=== PATIENT | female | born 1955 | race American Indian/Alaskan Native ===

== ENCOUNTER 2019-10-12 16:45 | Inpatient (IN) | payer MEDICARE ==
--- NOTE | 2019-10-12 19:15 | XRay Report ---
CHEST 2 VIEWS INDICATION / CLINICAL INFORMATION: Chest Pain. COMPARISON: 10/09/2019 FINDINGS: SUPPORT DEVICES: None. HEART / MEDIASTINUM: Prior sternotomy. Cardiac silhouette size remains mildly enlarged but unchanged. LUNGS / PLEURA: No significant pulmonary or pleural abnormality. No pneumothorax. ADDITIONAL FINDINGS: No significant additional findings. IMPRESSION: 1. No acute finding or interval change. Signer Name: Letty Znuiga MD Signed: 10/12/2019 7:10 PM Workstation Name: [id number]
[2019-10-12 19:23] LABS: Basophils # (Auto) 0.1 K/mm3 (0.0-0.1); Basophils % (Auto) 0.7 % (0.0-1.8); Eosinophils # (Auto) 0.1 K/mm3 (0.0-0.4); Eosinophils % (Auto) 1.6 % (0.0-4.3); Hematocrit 29.5 % (30.3-42.9); Hemoglobin 9.7 gm/dl (10.1-14.3); Lymphocytes # (Auto) 0.9 K/mm3 (1.2-5.4); Lymphocytes % (Auto) 11.1 % (13.4-35.0); Mean Corpuscular HGB Conc 33 % (30-34); Mean Corpuscular Volume 88 fl (79-97); Monocytes # (Auto) 0.6 K/mm3 (0.0-0.8); Monocytes % (Auto) 7.1 % (0.0-7.3); Platelet Count 252 K/mm3 (140-440); Red Blood Count 3.36 M/mm3 (3.65-5.03); Red Cell Distribution Width 15.3 % (13.2-15.2)
[2019-10-12 19:33] LABS: INR 1.07 (0.87-1.13)
[2019-10-12 19:34] LABS: Partial Thromboplastin Time 28.8 Sec. (24.2-36.6)
[2019-10-12 19:38] LABS: Creatine Kinase MB 1.2 ng/mL (0.0-4.0)
[2019-10-12 19:46] LABS: Alanine Aminotransferase 18 units/L (7-56); BUN/Creatinine Ratio 27; Blood Urea Nitrogen 19 mg/dL (7-17); Calcium 9.7 mg/dL (8.4-10.2); Hemolysis Index 10
--- NOTE | 2019-10-12 19:47 | Event Note ---
ED Screening Note ED Screening Note: epigastric abd pain left sided CP began today 3 pm associated SOB no n/v/d no cough no fever no leg swelling normal BM this morning PMHx CAD, HTN, HLD, CHF, Afib she is on eliquis, denies missing any doses no allergies to meds she does not use oxygen at home This initial assessment/diagnostic orders/clinical plan/treatment(s) is/are subject to change based on patients health status, clinical progression and re- assessment by fellow clinical providers in the ED. Further treatment and workup at subsequent clinical providers discretion. Patient/guardian urged not to elope from the ED as their condition may be serious if not clinically assessed and managed. Initial orders include: labs CXR EKG will send to MAIN ED
--- NOTE | 2019-10-12 22:12 | Emergency Department Report ---
ED Chest Pain HPI - General Chief Complaint: Chest Pain Stated Complaint: POP PUI?: No Time Seen by Provider: 10/12/19 21:44 Source: patient Mode of arrival: Wheelchair Limitations: No Limitations - History of Present Illness Initial Comments: Patient is a 64-year-old female that presents emergency room with complaints of chest pain and shortness of breath. Patient states her symptoms started yesterday. Patient states they are worsening. Patient states her chest pain is a 7 out of 10. Patient states the pain is worse with movement and exertion. Patient states that her pain is better with rest. Patient states that shortness of breath is better with rest and worse with exertion. Patient denies fever and chills. Patient denies cough. Patient denies nausea vomiting. Patient denies diaphoresis. Patient denies recent travel. Patient denies recent international travel. Patient denies exposure to the novel coronavirus. Patient denies sick contacts. Patient denies fever and chills. Patient denies cough. Patient denies diarrhea. Patient denies coming in contact with anybody with symptoms of the novel coronavirus. MD Complaint: chest pain, other (Redness of breath) - Related Data Home Medications Medication Instructions Recorded Confirmed Last Taken Aspirin [Aspirin BABY CHEW TAB] 81 mg PO DAILY 10/09/19 10/09/19 10/08/19 Atorvastatin Calcium [Lipitor] 40 mg PO HS 10/09/19 10/09/19 10/08/19 Gabapentin 100 mg PO Q8HR 10/09/19 10/09/19 10/08/19 Primidone [Mysoline] 50 mg PO BID 10/09/19 10/09/19 10/08/19 Xarelto 15 mg PO DAILY 10/09/19 10/09/19 10/08/19 Previous Rx's Medication Instructions Recorded Last Taken Type dilTIAZem CD [Cardizem CD] 240 mg PO QDAY #30 capsule 10/10/19 Unknown Rx Allergies Allergy/AdvReac Type Severity Reaction Status Date / Time No Known Allergies Allergy Unverified 10/09/19 10:34 Heart Score - HEART Score History: Moderately suspicious EKG: Non-specific Age: > 65 Risk factors: 1-2 risk factors Troponin: < normal limit HEART Score: 5 ED Review of Systems ROS: Stated complaint: POP Other details as noted in HPI Constitutional: denies: chills, fever Eyes: denies: eye pain, eye discharge, vision change ENT: denies: ear pain, throat pain Respiratory: shortness of breath. denies: cough, wheezing Cardiovascular: chest pain. denies: palpitations Endocrine: no symptoms reported Gastrointestinal: denies: abdominal pain, nausea, diarrhea Genitourinary: denies: urgency, dysuria, discharge Musculoskeletal: denies: back pain, joint swelling, arthralgia Skin: denies: rash, lesions Neurological: denies: headache, weakness, paresthesias Psychiatric: denies: anxiety, depression Hematological/Lymphatic: denies: easy bleeding, easy bruising ED Past Medical Hx - Past Medical History Previous Medical History?: Yes Hx Hypertension: Yes Hx CVA: Yes Hx Congestive Heart Failure: Yes - Surgical History Past Surgical History?: Yes Additional Surgical History: Open Heart, left knee, TL - Family History Family history: no significant - Social History Smoking Status: Never Smoker Substance Use Type: None - Medications Home Medications: Home Medications Medication Instructions Recorded Confirmed Last Taken Type Aspirin [Aspirin BABY CHEW TAB] 81 mg PO DAILY 10/09/19 10/09/19 10/08/19 History Atorvastatin Calcium [Lipitor] 40 mg PO HS 10/09/19 10/09/19 10/08/19 History Gabapentin 100 mg PO Q8HR 10/09/19 10/09/19 10/08/19 History Primidone [Mysoline] 50 mg PO BID 10/09/19 10/09/19 10/08/19 History Xarelto 15 mg PO DAILY 10/09/19 10/09/19 10/08/19 History dilTIAZem CD [Cardizem CD] 240 mg PO QDAY #30 capsule 10/10/19 Unknown Rx ED Physical Exam - General Limitations: No Limitations General appearance: alert, in no apparent distress - Head Head exam: Present: atraumatic, normocephalic - Eye Eye exam: Present: normal appearance - ENT ENT exam: Present: mucous membranes moist - Neck Neck exam: Present: normal inspection - Respiratory Respiratory exam: Present: normal lung sounds bilaterally. Absent: respiratory distress - Cardiovascular Cardiovascular Exam: Present: regular rate, normal rhythm. Absent: systolic murmur, diastolic murmur, rubs, gallop - GI/Abdominal GI/Abdominal exam: Present: soft, normal bowel sounds - Extremities Exam Extremities exam: Present: normal inspection - Back Exam Back exam: Present: normal inspection - Neurological Exam Neurological exam: Present: alert, oriented X3 - Psychiatric Psychiatric exam: Present: normal affect, normal mood - Skin Skin exam: Present: warm, dry, intact, normal color. Absent: rash ED Course Vital Signs 10/12/19 10/12/19 10/12/19 17:08 17:40 22:20 Temperature 98 F Pulse Rate 56 L 66 54 L Respiratory 18 26 H 18 Rate Blood Pressure 121/58 177/89 160/74 [Right] O2 Sat by Pulse 98 100 99 Oximetry 10/12/19 10/12/19 22:44 23:37 Temperature Pulse Rate 45 L Respiratory 20 18 Rate Blood Pressure 125/67 [Right] O2 Sat by Pulse 98 100 Oximetry - Reevaluation(s) Reevaluation #1: Patient complaining of chest pain. Patient will be given aspirin and morphine 2 mg. 10/12/19 22:01 Reevaluation #2: I discussed all results with patient. I discussed plan of care with patient. Patient agrees with plan of care and admission. Patient to be admitted to the hospitalist service. 10/12/19 22:41 - Consultations Consultation #1: Hospitalist consulted for admission. Hospitalist to admit patient. 10/12/19 22:41 HERBERTH score - Herberth Score Age > 65: (1) Yes Aspirin use within the Past 7 Days: (1) Yes 3 or more CAD Risk Factors: (1) Yes 2 or more Angina events in past 24 hrs: (0) No Known CAD with more than 50% Stenosis: (0) No Elevated Cardiac Markers: (0) No ST Deviation Greater than 0.5mm: (0) No HERBERTH Score: 3 ED Medical Decision Making - Lab Data Result diagrams: 10/12/19 23:47 10/12/19 23:47 - EKG Data -: EKG Interpreted by Me EKG shows normal: sinus rhythm, axis, intervals, QRS complexes, ST-T waves Rate: bradycardia - Radiology Data Radiology results: report reviewed, image reviewed interpreted by me: No acute findings on chest x-ray. - Medical Decision Making Patient is a 64-year-old female that presents emergency room with complaints of chest pain shortness of breath. Patient admitted to the hospital service for further evaluation and treatment and rule out ACS. Patient had an EKG which shows no STEMI changes. Patient had a chest x-ray which shows no acute findings. Patient's labs are unremarkable except for anemia and UTI. Anti biotics ordered. Patient given morphine and aspirin in the ER. - Differential Diagnosis Chest pain, shortness of breath, ACS, CHF, Critical Care Time: Yes Critical care time in (mins) excluding proc time.: 35 Critical care attestation.: If time is entered above; I have spent that time in minutes in the direct care of this critically ill patient, excluding procedure time. Critical Care Time: 35 minutes ED Disposition Clinical Impression: SOB (shortness of breath) Chest pain Qualifiers: Chest pain type: unspecified Qualified Code(s): R07.9 - Chest pain, unspecified UTI (urinary tract infection) Qualifiers: Urinary tract infection type: acute cystitis Hematuria presence: with hematuria Qualified Code(s): N30.01 - Acute cystitis with hematuria Anemia Qualifiers: Anemia type: unspecified type Qualified Code(s): D64.9 - Anemia, unspecified Disposition: DC-09 OP ADMIT IP TO THIS HOSP Is pt being admited?: Yes Does the pt Need Aspirin: No Condition: Critical Time of Disposition: 22:43
[2019-10-12] MEDS ORDERED: ASPIRIN 325 MG TAB PO ONE (22:39)
[2019-10-12] MEDS ORDERED: MORPHINE 2 MG/1 ML INJ IV ONE (22:39)
[2019-10-12] MEDS ORDERED: ACETAMINOPHEN 325 MG TAB PO PRN (23:05)
[2019-10-12] MEDS ORDERED: NITROGLYCERIN 0.4 MG TAB SUBL SL PRN (23:05)
[2019-10-12] MEDS ORDERED: MAGNESIUM HYDROXIDE (MOM) ORAL LIQD UDC PO PRN (23:05)
[2019-10-12] MEDS ORDERED: ONDANSETRON 4 MG/2 ML INJ IV PRN (23:05)
--- NOTE | 2019-10-12 23:17 | History and Physical Report ---
History of Present Illness Date of examination: 10/12/19 Date of admission: 10/12/2019 Chief complaint: Chest pain History of present illness: 34-year-old female with known history of open heart surgery in the past, CHF, CVA and hypertension presenting to the emergency room today complaining of chest pain. Chest pain was said to have started yesterday and has gotten worse today. On a scale of 10 pain was about 7-8 over 10. Pain is worse on exertion and improves upon resting. She has had associated shortness of breath, no fever or chills, no nausea vomiting, no diarrhea. Denies any diaphoresis. Chest pain is said to be midsternal and there has been no radiation. Patient denies any sick contacts and no recent travel. Denies any contact with anyone with COVID-19. Evaluation in the emergency room so far has not shown any significant abnormalities except for mild UTI. Past History Past Medical History: heart failure, hypertension, hyperlipidemia, stroke Past Surgical History: Other (Open heart surgery in 1962, left knee surgery in the past) Social history: no significant social history Family history: no significant family history Medications and Allergies Allergies Allergy/AdvReac Type Severity Reaction Status Date / Time No Known Allergies Allergy Unverified 10/09/19 10:34 Home Medications Medication Instructions Recorded Confirmed Last Taken Type Aspirin [Aspirin BABY CHEW TAB] 81 mg PO DAILY 10/09/19 10/13/19 10/08/19 History Atorvastatin Calcium [Lipitor] 40 mg PO HS 10/09/19 10/13/19 10/08/19 History Gabapentin 100 mg PO Q8HR 10/09/19 10/13/19 10/08/19 History Primidone [Mysoline] 50 mg PO BID 10/09/19 10/13/19 10/08/19 History Xarelto 15 mg PO DAILY 10/09/19 10/13/19 10/08/19 History dilTIAZem CD [Cardizem CD] 240 mg PO QDAY #30 capsule 10/10/19 10/13/19 Unknown Rx Review of Systems Constitutional: no fever, no chills Ears, nose, mouth and throat: no nasal congestion, no sore throat Cardiovascular: chest pain, no palpitations Respiratory: no cough, no shortness of breath Gastrointestinal: no abdominal pain, no nausea, no vomiting, no diarrhea Genitourinary Female: no pelvic pain, no flank pain, no hematuria Musculoskeletal: no neck pain, no low back pain Integumentary: no rash, no pruritis Neurological: no headaches, no confusion Psychiatric: no anxiety, no depression Exam - Constitutional Vitals: Temp Pulse Resp BP Pulse Ox 98 F 66 26 H 177/89 100 10/12/19 17:08 10/12/19 17:40 10/12/19 17:40 10/12/19 17:40 10/12/19 17:40 General appearance: Present: no acute distress, well-nourished - EENT Eyes: Present: PERRL, EOM intact ENT: hearing intact, clear oral mucosa, dentition normal - Neck Neck: Present: supple, normal ROM - Respiratory Respiratory effort: normal Respiratory: bilateral: CTA - Cardiovascular Rhythm: regular Heart Sounds: Present: S1 & S2. Absent: gallop, systolic murmur, diastolic murmur, rub - Extremities Extremities: no ischemia, pulses intact, pulses symmetrical, No edema, Full ROM Peripheral Pulses: within normal limits - Abdominal General gastrointestinal: Present: soft, non-tender, non-distended, normal bowel sounds. Absent: mass - Integumentary Integumentary: Present: clear, warm, dry. Absent: rash - Musculoskeletal Musculoskeletal: strength equal bilaterally - Psychiatric Psychiatric: appropriate mood/affect, intact judgment & insight, memory intact, cooperative - Neurologic Neurologic: CNII-XII intact, no focal deficits, moves all extremities HEART Score - HEART Score EKG: Non-specific Age: > 65 Risk factors: 1-2 risk factors Troponin: Troponin T < 0.010 ng/mL (0.00-0.029) 10/12/19 21:18 Troponin: < normal limit Results - Labs CBC & Chem 7: 10/12/19 23:47 10/12/19 23:47 Labs: Abnormal lab results 10/12/19 10/12/19 Range/Units 19:06 19:06 RBC 3.36 L (3.65-5.03) M/mm3 Hgb 9.7 L (10.1-14.3) gm/dl Hct 29.5 L (30.3-42.9) % RDW 15.3 H (13.2-15.2) % Lymph % (Auto) 11.1 L (13.4-35.0) % Lymph # 0.9 L (1.2-5.4) K/mm3 Seg Neutrophils % 79.5 H (40.0-70.0) % BUN 19 H (7-17) mg/dL Glucose 105 H (65-100) mg/dL Assessment and Plan - Patient Problems (1) Chest pain Current Visit: Yes Status: Acute Qualifiers: Chest pain type: unspecified Qualified Code(s): R07.9 - Chest pain, unspecified Plan to address problem: Patient admitted and placed on telemetry. Will check serial cardiac enzymes. Also schedule patient for stress test. Meanwhile patient placed on aspirin, sublingual nitroglycerin and IV morphine as needed for chest pain. (2) Hypertension Current Visit: Yes Status: Acute Plan to address problem: Blood pressure stable and we will continue routine home medications. Will monitor vital signs closely. (3) Hyperlipidemia Current Visit: Yes Status: Acute Plan to address problem: We will monitor lipid profile and continue routine home medications. (4) UTI (urinary tract infection) Current Visit: Yes Status: Acute Qualifiers: Urinary tract infection type: acute cystitis Hematuria presence: with hematuria Qualified Code(s): N30.01 - Acute cystitis with hematuria Plan to address problem: GEN placed on empiric IV antibiotics. We will await urine culture result. (5) DVT prophylaxis Current Visit: Yes Status: Acute Plan to address problem: Patient on anticoagulation. (6) Full code status Current Visit: Yes Status: Acute
[2019-10-12 23:44] LABS: Bacteria,Urine 1+ /HPF (Negative); Bilirubin,Urine NEG (Negative); Blood,Urine NEG (Negative); Color,Urine Yellow (Yellow); Hyaline Casts,Urine 1 /LPF; Mucus,Urine FEW /HPF; Protein,Urine <15 mg/dL mg/dL (Negative); Urobilinogen,Urine < 2.0 mg/dL (<2.0)
[2019-10-13 00:07] LABS: Basophils % (Auto) 0.7 % (0.0-1.8); Eosinophils # (Auto) 0.2 K/mm3 (0.0-0.4); Eosinophils % (Auto) 2.2 % (0.0-4.3); Hematocrit 27.2 % (30.3-42.9); Hemoglobin 8.9 gm/dl (10.1-14.3); Lymphocytes % (Auto) 14.5 % (13.4-35.0); Mean Corpuscular HGB Conc 33 % (30-34); Mean Corpuscular Volume 88 fl (79-97); Monocytes # (Auto) 0.5 K/mm3 (0.0-0.8); Monocytes % (Auto) 7.5 % (0.0-7.3); Platelet Count 230 K/mm3 (140-440); Red Blood Count 3.09 M/mm3 (3.65-5.03); Red Cell Distribution Width 15.3 % (13.2-15.2)
[2019-10-13 00:23] LABS: BUN/Creatinine Ratio 24; Blood Urea Nitrogen 17 mg/dL (7-17); Calcium 9.5 mg/dL (8.4-10.2); Hemolysis Index 7
[2019-10-13] MEDS ORDERED: CEFEPIME/NS 2 GM/100 ML 2 GM/100 ML BAG IV ONE (01:57)
[2019-10-13] MEDS ORDERED: HEPARIN 5,000 UNIT/1 ML VIAL SUB-Q SCH (06:00)
[2019-10-13] MEDS ORDERED: GABAPENTIN 100 MG CAP PO SCH (06:00)
[2019-10-13] MEDS: GABAPENTIN 100 MG CAP PO SCH ×3 (09:00→22:34)
[2019-10-13] MEDS: dilTIAZem CD 240 MG CAP PO SCH (09:05)
[2019-10-13] MEDS: ASPIRIN EC 81 MG TAB PO SCH (09:33)
[2019-10-13] MEDS: RIVAROXABAN 15 MG TAB PO SCH (09:33)
[2019-10-13] MEDS: cefTRIAXone/NS 1 GM/50 ML 1 GM/50 ML BAG IV SCH (09:34)
[2019-10-13] MEDS ORDERED: ASPIRIN EC 325 MG TAB PO SCH (10:00)
[2019-10-13] MEDS: PRIMIDONE 50 MG TAB PO SCH ×2 (10:25→22:34)
[2019-10-13 10:30] LABS: Basophils % (Auto) 0.6 % (0.0-1.8); Eosinophils # (Auto) 0.1 K/mm3 (0.0-0.4); Hematocrit 26.8 % (30.3-42.9); Hemoglobin 8.8 gm/dl (10.1-14.3); Lymphocytes # (Auto) 0.8 K/mm3 (1.2-5.4); Lymphocytes % (Auto) 13.1 % (13.4-35.0); Mean Corpuscular HGB Conc 33 % (30-34); Mean Corpuscular Volume 88 fl (79-97); Monocytes # (Auto) 0.3 K/mm3 (0.0-0.8); Monocytes % (Auto) 5.2 % (0.0-7.3); Platelet Count 221 K/mm3 (140-440); Red Blood Count 3.06 M/mm3 (3.65-5.03)
[2019-10-13 10:42] LABS: INR 1.18 (0.87-1.13)
[2019-10-13 10:56] LABS: BUN/Creatinine Ratio 26; Blood Urea Nitrogen 13 mg/dL (7-17); Calcium 7.4 mg/dL (8.4-10.2); Hemolysis Index 4
--- NOTE | 2019-10-13 13:34 | Progress Note ---
Assessment and Plan - Patient Problems (1) Angina at rest Current Visit: Yes Status: Acute Plan to address problem: Serial cardiac enzymes, EKG, telemetry, pain management, morphine, supplemental oxygen, nitro, aspirin, cardiology team consulted. (2) Diastolic CHF Current Visit: Yes Status: Acute Qualifiers: Heart failure chronicity: acute on chronic Qualified Code(s): I50.33 - Acute on chronic diastolic (congestive) heart failure Plan to address problem: Strict I's/O, daily weight, monitor urine output every shift, afterload reduction, blood pressure control, cardiology team consulted. (3) Hyperlipidemia Current Visit: Yes Status: Acute Qualifiers: Hyperlipidemia type: mixed hyperlipidemia Qualified Code(s): E78.2 - Mixed hyperlipidemia Plan to address problem: Low-cholesterol diet, statin therapy as clinically indicated. (4) Hypertension Current Visit: Yes Status: Acute Qualifiers: Hypertension type: essential hypertension Qualified Code(s): I10 - Essential (primary) hypertension Plan to address problem: Monitor blood pressure every shift, continue medical management (5) UTI (urinary tract infection) Current Visit: Yes Status: Acute Qualifiers: Urinary tract infection type: acute cystitis Hematuria presence: with hematuria Qualified Code(s): N30.01 - Acute cystitis with hematuria Plan to address problem: Urinalysis, CBC, IV antibiotic therapy. (6) Advance care planning Current Visit: Yes Status: Acute Plan to address problem: Disease education conducted, patient is full code, patient prognosis discussed, patient knowledges understanding and agreement with care plan, +30 minutes. (7) DVT prophylaxis Current Visit: Yes Status: Acute Plan to address problem: SCD to bilateral lower extremities while in bed, patient is ambulatory History Interval history: 64 YO Female HD #2 with Angina, Diastolic CHF, UTI, CAD. Patient rested comfortably overnight. Patient initiated on chest pain protocol. Will continue telemetry monitoring. Continue antibiotic therapy. Patient denies fever, chills, chest pain, palpitations, shortness of breath. Hospitalist Physical - Constitutional Vitals: Temp Pulse Resp BP Pulse Ox 97.9 F 71 17 147/66 98 10/13/19 03:00 10/13/19 11:32 10/13/19 11:32 10/13/19 09:05 10/13/19 11:32 General appearance: Present: no acute distress, well-nourished - EENT Eyes: Present: PERRL ENT: hearing intact - Neck Neck: Present: supple - Respiratory Respiratory: bilateral: CTA - Cardiovascular Rhythm: regular Heart Sounds: Present: S1 & S2 - Extremities Extremities: no ischemia Peripheral Pulses: within normal limits - Abdominal General gastrointestinal: soft, non-tender, non-distended - Integumentary Integumentary: Present: clear, dry - Psychiatric Psychiatric: appropriate mood/affect, cooperative - Neurologic Neurologic: CNII-XII intact HEART Score - HEART Score EKG: Non-specific Age: > 65 Risk factors: 1-2 risk factors Troponin: Troponin T < 0.010 ng/mL (0.00-0.029) 10/13/19 10:05 Troponin: < normal limit Results - Labs CBC & Chem 7: 10/13/19 10:05 10/13/19 10:05 Labs: Laboratory Last Values WBC 6.3 K/mm3 (4.5-11.0) 10/13/19 10:05 RBC 3.06 M/mm3 (3.65-5.03) L 10/13/19 10:05 Hgb 8.8 gm/dl (10.1-14.3) L 10/13/19 10:05 Hct 26.8 % (30.3-42.9) L 10/13/19 10:05 MCV 88 fl (79-97) 10/13/19 10:05 MCH 29 pg (28-32) 10/13/19 10:05 MCHC 33 % (30-34) 10/13/19 10:05 RDW 15.0 % (13.2-15.2) 10/13/19 10:05 Plt Count 221 K/mm3 (140-440) 10/13/19 10:05 Lymph % (Auto) 13.1 % (13.4-35.0) L 10/13/19 10:05 Edgar % (Auto) 5.2 % (0.0-7.3) 10/13/19 10:05 Eos % (Auto) 2.0 % (0.0-4.3) 10/13/19 10:05 Baso % (Auto) 0.6 % (0.0-1.8) 10/13/19 10:05 Lymph # 0.8 K/mm3 (1.2-5.4) L 10/13/19 10:05 Edgar # 0.3 K/mm3 (0.0-0.8) 10/13/19 10:05 Eos # 0.1 K/mm3 (0.0-0.4) 10/13/19 10:05 Baso # 0.0 K/mm3 (0.0-0.1) 10/13/19 10:05 Seg Neutrophils % 79.1 % (40.0-70.0) H 10/13/19 10:05 Seg Neutrophils # 5.0 K/mm3 (1.8-7.7) 10/13/19 10:05 PT 14.8 Sec. (12.2-14.9) 10/13/19 10:05 INR 1.18 (0.87-1.13) H 10/13/19 10:05 APTT 28.8 Sec. (24.2-36.6) 10/12/19 19:06 Sodium 152 mmol/L (137-145) H D 10/13/19 10:05 Potassium 3.1 mmol/L (3.6-5.0) L D 10/13/19 10:05 Chloride 110.9 mmol/L (98-107) H 10/13/19 10:05 Carbon Dioxide 18 mmol/L (22-30) L D 10/13/19 10:05 Anion Gap 26 mmol/L 10/13/19 10:05 BUN 13 mg/dL (7-17) 10/13/19 10:05 Creatinine 0.5 mg/dL (0.7-1.2) L 10/13/19 10:05 Estimated GFR > 60 ml/min 10/13/19 10:05 BUN/Creatinine Ratio 26 % 10/13/19 10:05 Glucose 107 mg/dL (65-100) H 10/13/19 10:05 Calcium 7.4 mg/dL (8.4-10.2) L D 10/13/19 10:05 Total Bilirubin 0.20 mg/dL (0.1-1.2) 10/12/19 19:06 AST 18 units/L (5-40) 10/12/19 19:06 ALT 18 units/L (7-56) 10/12/19 19:06 Alkaline Phosphatase 83 units/L (35-129) 10/12/19 19:06 Total Creatine Kinase 81 units/L (30-135) 10/12/19 19:06 CK-MB (CK-2) 1.2 ng/mL (0.0-4.0) 10/12/19 19:06 CK-MB (CK-2) Rel Index 1.4 (0-4) 10/12/19 19:06 Troponin T < 0.010 ng/mL (0.00-0.029) 10/13/19 10:05 NT-Pro-B Natriuret Pep 341.8 pg/mL (0-900) 10/12/19 19:06 Total Protein 7.5 g/dL (6.3-8.2) 10/12/19 19:06 Albumin 4.0 g/dL (3.9-5) 10/12/19 19:06 Albumin/Globulin Ratio 1.1 % 10/12/19 19:06 Urine Color Yellow (Yellow) 10/12/19 22:53 Urine Turbidity Slightly-cloudy (Clear) 10/12/19 22:53 Urine pH 6.0 (5.0-7.0) 10/12/19 22:53 Ur Specific [place] 1.014 (1.003-1.030) 10/12/19 22:53 Urine Protein <15 mg/dl mg/dL (Negative) 10/12/19 22:53 Urine Glucose (UA) Neg mg/dL (Negative) 10/12/19 22:53 Urine Ketones Neg mg/dL (Negative) 10/12/19 22:53 Urine Blood Neg (Negative) 10/12/19 22:53 Urine Nitrite Neg (Negative) 10/12/19 22:53 Urine Bilirubin Neg (Negative) 10/12/19 22:53 Urine Urobilinogen < 2.0 mg/dL (<2.0) 10/12/19 22:53 Ur Leukocyte Esterase Lg (Negative) 10/12/19 22:53 Urine WBC (Auto) 84.0 /HPF (0.0-6.0) H 10/12/19 22:53 Urine RBC (Auto) 2.0 /HPF (0.0-6.0) 10/12/19 22:53 U Epithel Cells (Auto) 3.0 /HPF (0-13.0) 10/12/19 22:53 Urine Bacteria (Auto) 1+ /HPF (Negative) 10/12/19 22:53 Hyaline Casts 1 /LPF 10/12/19 22:53 Urine Mucus Few /HPF 10/12/19 22:53 Urine Yeast (Budding) 1+ /HPF 10/12/19 22:53 - Diagnostic Impressions Diagnostic Impressions: Echocardiogram 10/12/19 23:10 Transthoracic Echocardiogram Indication: Chest Pain BP: 103/63 HR: 66 Findings Left Ventricle: The left ventricular chamber size is normal. Global left ventricular wall motion and contractility are within normal limits. Global left ventricular systolic function is at the lower limits of normal. The estimated ejection fraction is 50-55%. Abnormal left ventricular diastolic function is observed. The left ventricular diastolic filling pattern is consistent with pseudonormalization. Left Atrium: The left atrium is mildly dilated. Right Ventricle: The right ventricular cavity size is normal. The right ventricular global systolic function is normal. Right Atrium: The right atrium appears normal. The interatrial septum appears normal. Aortic Valve: The aortic valve structure is normal. There is no evidence of aortic regurgitation. There is no evidence of aortic stenosis. Mitral Valve: The mitral valve leaflets appear normal. There is mild mitral regurgitation. There is no evidence of mitral stenosis. Tricuspid Valve: The tricuspid valve leaflets are normal. There is trace tricuspid regurgitation. The right ventricular systolic pressure is calculated at 27 mmHg. There is no tricuspid stenosis. Pulmonic Valve: The pulmonic valve appears normal. There is mild pulmonic regurgitation. There is no pulmonic stenosis. Pericardium: There is no pericardial effusion. Aorta: There is no dilatation of the ascending aorta. There is no dilatation of the aortic arch. There is no dilatation of the descending thoracic aorta. There is no dilatation of the aortic root. Venous: The inferior vena cava appears normal in size. There is a greater than 50% respiratory change in the inferior vena cava dimension. Measurements Chambers 2D Name Value Normal Range IVSd (2D) 0.93 cm (0.6 - 1.1) LVPWd (2D) 0.92 cm (0.6 - 1.1) LVIDd (2D) 4.85 cm (3.7 - 5.6) LVIDs (2D) 3.63 cm (2 - 3.8) LV FS (2D) 25.26 % - EF Teichholz (2D) 49.75 % - Ao root diameter (2D) 2.01 cm (2 - 3.7) Volumes/Mass Name Value Normal Range LA ESV SP 4CH (A/L) 49.06 ml - LA ESV SP 2CH (A/L) 43.46 ml - LA ESV BP (A/L) 50.21 ml - LA ESV SP 4CH (MOD) 43.1 ml - LA ESV SP 2CH (MOD) 41.49 ml - LA ESV BP (MOD) 45.88 ml - LA ESV BP (MOD) index 27.15 ml/m2 - LV EDV SP 4CH (MOD) 108.13 ml - LV ESV SP 4CH (MOD) 57.57 ml - EF SP 4CH (MOD) 46.76 % - LV EDV SP 2CH (MOD) 99.03 ml - LV ESV SP 2CH (MOD) 42.95 ml - EF SP 2CH (MOD) 56.63 % - LV EDV BP 103.38 ml - LV ESV BP 54.18 ml - BP EF (MOD) 47.59 % - Diastolic/Systolic Function Name Value Normal Range MV E-wave Vmax 0.89 m/sec - MV deceleration time 183.25 msec - MV A-wave Vmax 0.68 m/sec - MV E:A ratio 1.32 ratio - Aortic Valve Name Value Normal Range AV Vmax 1.54 m/sec - AV VTI 33.92 cm - AV peak gradient 9.49 mmHg - AV mean gradient 4.57 mmHg - LVOT diameter 1.87 cm - LVOT Vmax 1.11 m/sec - LVOT VTI 18.85 cm - LVOT peak gradient 4.96 mmHg - LVOT mean gradient 2.49 mmHg - SV LVOT 51.68 ml - KOSTA (continuity Vmax) 1.98 cm2 - KOSTA (continuity VTI) 1.52 cm2 - Ascending Ao 1.91 cm - Tricuspid Valve Name Value Normal Range TR Vmax 2.42 m/sec - TR peak gradient 23.52 mmHg - RAP 3 mmHg - RVSP 27 mmHg - Pulmonic Valve/Qp:Qs Name Value Normal Range PV Vmax 1.17 m/sec - PV peak gradient 5.44 mmHg - HI end-diastolic Vmax 1.39 m/sec - PV acceleration time 76.12 msec - Naik/IV: Voiding Method Toilet IV Catheter Type [Right INT / Saline Lock Forearm] Active Medications - Current Medications Current Medications: Generic Name Dose Route Start Last Admin Trade Name Freq PRN Reason Stop Dose Admin Acetaminophen 650 mg 10/12/19 23:05 Tylenol PO Q4H PRN Pain MILD(1-3)/Fever >100.5/CREWS Aspirin 81 mg 10/13/19 10:00 10/13/19 09:33 Halfprin Ec PO 81 mg QDAY AMELIA Administration Atorvastatin Calcium 40 mg 10/13/19 22:00 Lipitor PO QHS AMELIA Diltiazem HCl 240 mg 10/13/19 08:00 10/13/19 09:05 Cardizem Cd PO 240 mg QDAY@0800 AMELIA Administration Gabapentin 100 mg 10/13/19 08:00 10/13/19 09:00 Gabapentin PO 100 mg Q8H AMELIA Administration Ceftriaxone Sodium 1 gm in 50 mls @ 100 mls/hr 10/13/19 10:00 10/13/19 09:34 Rocephin/Ns 1 Gm/50 Ml IV 100 mls/hr Q24HR AMELIA Administration Protocol Magnesium Hydroxide 30 ml 10/12/19 23:05 Milk Of Magnesia PO Q4H PRN Constipation Morphine Sulfate 2 mg 10/12/19 23:05 Morphine IV Q5MIN PRN Chest Pain unrelieved by NTG Nitroglycerin 0.4 mg 10/12/19 23:05 Nitrostat SL Q5M PRN Chest Pain Ondansetron HCl 4 mg 10/12/19 23:05 Zofran IV Q8H PRN Nausea And Vomiting Primidone 50 mg 10/13/19 10:00 10/13/19 10:25 Mysoline PO 50 mg BID AMELIA Administration Rivaroxaban 15 mg 10/13/19 10:00 10/13/19 09:33 Xarelto PO 15 mg QAM AMELIA Administration Sodium Chloride 10 ml 10/13/19 10:00 10/13/19 09:34 Sodium Chloride Flush Syringe 10 Ml IV 10 ml BID AMELIA Administration Sodium Chloride 10 ml 10/12/19 23:05 Sodium Chloride Flush Syringe 10 Ml IV PRN PRN LINE FLUSH
[2019-10-13] MEDS: MORPHINE 2 MG/1 ML INJ IV PRN (20:10)
[2019-10-14] MEDS: GABAPENTIN 100 MG CAP PO SCH ×3 (00:36→15:26)
[2019-10-14] MEDS: dilTIAZem CD 240 MG CAP PO SCH (08:05)
[2019-10-14] MEDS: cefTRIAXone/NS 1 GM/50 ML 1 GM/50 ML BAG IV SCH (09:03)
[2019-10-14] MEDS: RIVAROXABAN 15 MG TAB PO SCH (09:03)
[2019-10-14] MEDS: ASPIRIN EC 81 MG TAB PO SCH (09:03)
[2019-10-14] MEDS: PRIMIDONE 50 MG TAB PO SCH ×2 (09:03→23:28)
--- NOTE | 2019-10-14 09:33 | Consultation ---
History of Present Illness Consult date: 10/14/19 Consult reason: atrial fibrillation History of present illness: 64-year-old -Iranian female who presents with paroxysmal palpitations patient was recently admitted to [facility] where she had been diagnosed with paroxysmal atrial fibrillation she was started on Xarelto and Cardizem and discharged home patient admits to being compliant on her medication but presented with a sustained episode of palpitations again. On previous admission patient's TSH level was normal. Patient gives a history of having cardiac surgery for repair of an ASD in the 1960s. Past History Past Medical History: heart failure, hypertension, hyperlipidemia, stroke Past Surgical History: Other (Open heart surgery in 1962, left knee surgery in the past) Social history: no significant social history Family history: no significant family history Medications and Allergies Allergies Allergy/AdvReac Type Severity Reaction Status Date / Time No Known Allergies Allergy Unverified 10/09/19 10:34 Home Medications Medication Instructions Recorded Confirmed Last Taken Type Aspirin [Aspirin BABY CHEW TAB] 81 mg PO DAILY 10/09/19 10/13/19 10/08/19 History Atorvastatin Calcium [Lipitor] 40 mg PO HS 10/09/19 10/13/19 10/08/19 History Gabapentin 100 mg PO Q8HR 10/09/19 10/13/19 10/08/19 History Primidone [Mysoline] 50 mg PO BID 10/09/19 10/13/19 10/08/19 History Xarelto 15 mg PO DAILY 10/09/19 10/13/19 10/08/19 History dilTIAZem CD [Cardizem CD] 240 mg PO QDAY #30 capsule 10/10/19 10/13/19 Unknown Rx Active Meds: Active Medications Acetaminophen (Tylenol) 650 mg PO Q4H PRN PRN Reason: Pain MILD(1-3)/Fever >100.5/CREWS Aspirin (Halfprin Ec) 81 mg PO QDAY [facility] Last Admin: 10/14/19 09:03 Dose: 81 mg Documented by: Atorvastatin Calcium (Lipitor) 40 mg PO QHS [facility] Last Admin: 10/13/19 22:34 Dose: 40 mg Documented by: Diltiazem HCl (Cardizem Cd) 240 mg PO QDAY@0800 [facility] Last Admin: 10/14/19 08:05 Dose: 240 mg Documented by: Gabapentin (Gabapentin) 100 mg PO Q8H [facility] Last Admin: 10/14/19 08:06 Dose: 100 mg Documented by: Ceftriaxone Sodium (Rocephin/Ns 1 Gm/50 Ml) 1 gm in 50 mls @ 100 mls/hr IV Q24HR [facility]; Protocol Last Admin: 10/14/19 09:03 Dose: 100 mls/hr Documented by: Magnesium Hydroxide (Milk Of Magnesia) 30 ml PO Q4H PRN PRN Reason: Constipation Morphine Sulfate (Morphine) 2 mg IV Q5MIN PRN PRN Reason: Chest Pain unrelieved by NTG Last Admin: 10/13/19 20:10 Dose: 2 mg Documented by: Nitroglycerin (Nitrostat) 0.4 mg SL Q5M PRN PRN Reason: Chest Pain Ondansetron HCl (Zofran) 4 mg IV Q8H PRN PRN Reason: Nausea And Vomiting Primidone (Mysoline) 50 mg PO BID [facility] Last Admin: 10/14/19 09:03 Dose: 50 mg Documented by: Rivaroxaban (Xarelto) 15 mg PO QAM [facility] Last Admin: 10/14/19 09:03 Dose: 15 mg Documented by: Sodium Chloride (Sodium Chloride Flush Syringe 10 Ml) 10 ml IV BID [facility] Last Admin: 10/14/19 09:04 Dose: 10 ml Documented by: Sodium Chloride (Sodium Chloride Flush Syringe 10 Ml) 10 ml IV PRN PRN PRN Reason: LINE FLUSH Review of Systems Cardiovascular: palpitations Physical Examination Vital Signs Temp Pulse Resp BP Pulse Ox 98 F 56 L 18 121/58 98 10/12/19 17:08 10/12/19 17:08 10/12/19 17:08 10/12/19 17:08 10/12/19 17:08 General appearance: no acute distress, well-nourished HEENT: Positive: PERRL, Mucus Membranes Moist Neck: Positive: neck supple, trachea midline Cardiac: Positive: Reg Rate and Rhythm, S1/S2. Negative: Audible Murmur Lungs: Positive: clear to auscultation, Normal Breath Sounds Neuro: Positive: Grossly Intact Abdomen: Positive: Soft, Active Bowel Sounds. Negative: Tender, Distended Female genitourinary: deferred Skin: Positive: Clear Incision: Cardiac Cath Site Musculoskeletal: No Pain, Normal Range of Motion, other (lipoma right shoulder) Extremities: Present: normal. Absent: edema Results 10/13/19 10:05 10/13/19 10:05 Coagulation 10/13/19 Range/Units 10:05 PT 14.8 (12.2-14.9) Sec. INR 1.18 H (0.87-1.13) CBC 10/13/19 Range/Units 10:05 WBC 6.3 (4.5-11.0) K/mm3 RBC 3.06 L (3.65-5.03) M/mm3 Hgb 8.8 L (10.1-14.3) gm/dl Hct 26.8 L (30.3-42.9) % Plt Count 221 (140-440) K/mm3 Lymph # 0.8 L (1.2-5.4) K/mm3 [place] # 0.3 (0.0-0.8) K/mm3 Eos # 0.1 (0.0-0.4) K/mm3 Baso # 0.0 (0.0-0.1) K/mm3 Comprehensive Metabolic Panel 10/13/19 Range/Units 10:05 Sodium 152 H D (137-145) mmol/L Potassium 3.1 L D (3.6-5.0) mmol/L Chloride 110.9 H (98-107) mmol/L Carbon Dioxide 18 L D (22-30) mmol/L BUN 13 (7-17) mg/dL Creatinine 0.5 L (0.7-1.2) mg/dL Glucose 107 H (65-100) mg/dL Calcium 7.4 L D (8.4-10.2) mg/dL EKG interpretations - EKG Supraventricular dysrhythmia: ectopic atrial rhythm AV and intraventricular conduction: 1 AV block Assessment and Plan 1. Paroxysmal atrial fibrillation 2. Abnormal resting EKG 3. Essential hypertension 4. History of surgical ASD repair EKG shows ectopic atrial rhythm with a first-degree AV block normal axis with nonspecific ST-T changes. Plan. Patient is currently stable she states she did not have chest pain and had not complained of chest pain but palpitations which was similar to symptoms she had on a recent admission to [facility] within the past week. We shall resume Garima and Eb would recommend EP evaluation for possible ablation.
[2019-10-14] MEDS: MORPHINE 2 MG/1 ML INJ IV PRN (13:42)
--- NOTE | 2019-10-14 21:10 | Progress Note ---
Assessment and Plan - Patient Problems (1) Paroxysmal atrial fibrillation Current Visit: Yes Status: Acute Plan to address problem: Continue rate control as per cardiology team, patient is pending electrophysiology evaluation. (2) Angina at rest Current Visit: Yes Status: Acute Plan to address problem: Serial cardiac enzymes, EKG, telemetry, pain management, morphine, supplemental oxygen, nitro, aspirin, cardiology team consulted. (3) Diastolic CHF Current Visit: Yes Status: Acute Qualifiers: Heart failure chronicity: acute on chronic Qualified Code(s): I50.33 - Acute on chronic diastolic (congestive) heart failure Plan to address problem: Strict I's/O, daily weight, monitor urine output every shift, afterload reduction, blood pressure control, cardiology team consulted. (4) Hyperlipidemia Current Visit: Yes Status: Acute Qualifiers: Hyperlipidemia type: mixed hyperlipidemia Qualified Code(s): E78.2 - Mixed hyperlipidemia Plan to address problem: Low-cholesterol diet, statin therapy as clinically indicated. (5) Hypertension Current Visit: Yes Status: Acute Qualifiers: Hypertension type: essential hypertension Qualified Code(s): I10 - Essential (primary) hypertension Plan to address problem: Monitor blood pressure every shift, continue medical management (6) UTI (urinary tract infection) Current Visit: Yes Status: Acute Qualifiers: Urinary tract infection type: acute cystitis Hematuria presence: with hematuria Qualified Code(s): N30.01 - Acute cystitis with hematuria Plan to address problem: Urinalysis, CBC, IV antibiotic therapy. (7) Advance care planning Current Visit: Yes Status: Acute Plan to address problem: Disease education conducted, patient is full code, patient prognosis discussed, patient knowledges understanding and agreement with care plan, +30 minutes. (8) DVT prophylaxis Current Visit: Yes Status: Acute Plan to address problem: SCD to bilateral lower extremities while in bed, patient is ambulatory History Interval history: 64 YO Female HD #3 with Paroxysmal Atrial Fib pending EP evaluation, Diastolic CHF, UTI, CAD. Patient rested comfortably overnight. Patient denies fever, chills, chest pain, palpitations, shortness of breath. No reported nursing events. Hospitalist Physical - Constitutional Vitals: Temp Pulse Resp BP Pulse Ox 98.1 F 72 19 131/48 97 10/14/19 19:25 10/14/19 19:25 10/14/19 19:25 10/14/19 19:25 10/14/19 19:25 General appearance: Present: no acute distress, well-nourished - EENT Eyes: Present: PERRL ENT: hearing intact - Neck Neck: Present: supple - Respiratory Respiratory effort: normal Respiratory: bilateral: CTA - Cardiovascular Rhythm: irregularly irregular - Extremities Extremities: no ischemia Peripheral Pulses: within normal limits - Abdominal General gastrointestinal: soft, non-tender, non-distended - Integumentary Integumentary: Present: clear, dry - Psychiatric Psychiatric: appropriate mood/affect, cooperative - Neurologic Neurologic: CNII-XII intact HEART Score - HEART Score EKG: Non-specific Age: > 65 Risk factors: 1-2 risk factors Troponin: Troponin T < 0.010 ng/mL (0.00-0.029) 10/13/19 10:05 Troponin: < normal limit Results - Labs CBC & Chem 7: 10/13/19 10:05 10/13/19 10:05 Labs: Laboratory Last Values WBC 6.3 K/mm3 (4.5-11.0) 10/13/19 10:05 RBC 3.06 M/mm3 (3.65-5.03) L 10/13/19 10:05 Hgb 8.8 gm/dl (10.1-14.3) L 10/13/19 10:05 Hct 26.8 % (30.3-42.9) L 10/13/19 10:05 MCV 88 fl (79-97) 10/13/19 10:05 MCH 29 pg (28-32) 10/13/19 10:05 MCHC 33 % (30-34) 10/13/19 10:05 RDW 15.0 % (13.2-15.2) 10/13/19 10:05 Plt Count 221 K/mm3 (140-440) 10/13/19 10:05 Lymph % (Auto) 13.1 % (13.4-35.0) L 10/13/19 10:05 [place] % (Auto) 5.2 % (0.0-7.3) 10/13/19 10:05 Eos % (Auto) 2.0 % (0.0-4.3) 10/13/19 10:05 Baso % (Auto) 0.6 % (0.0-1.8) 10/13/19 10:05 Lymph # 0.8 K/mm3 (1.2-5.4) L 10/13/19 10:05 [place] # 0.3 K/mm3 (0.0-0.8) 10/13/19 10:05 Eos # 0.1 K/mm3 (0.0-0.4) 10/13/19 10:05 Baso # 0.0 K/mm3 (0.0-0.1) 10/13/19 10:05 Seg Neutrophils % 79.1 % (40.0-70.0) H 10/13/19 10:05 Seg Neutrophils # 5.0 K/mm3 (1.8-7.7) 10/13/19 10:05 PT 14.8 Sec. (12.2-14.9) 10/13/19 10:05 INR 1.18 (0.87-1.13) H 10/13/19 10:05 APTT 28.8 Sec. (24.2-36.6) 10/12/19 19:06 Sodium 152 mmol/L (137-145) H D 10/13/19 10:05 Potassium 3.1 mmol/L (3.6-5.0) L D 10/13/19 10:05 Chloride 110.9 mmol/L (98-107) H 10/13/19 10:05 Carbon Dioxide 18 mmol/L (22-30) L D 10/13/19 10:05 Anion Gap 26 mmol/L 10/13/19 10:05 BUN 13 mg/dL (7-17) 10/13/19 10:05 Creatinine 0.5 mg/dL (0.7-1.2) L 10/13/19 10:05 Estimated GFR > 60 ml/min 10/13/19 10:05 BUN/Creatinine Ratio 26 % 10/13/19 10:05 Glucose 107 mg/dL (65-100) H 10/13/19 10:05 Calcium 7.4 mg/dL (8.4-10.2) L D 10/13/19 10:05 Total Bilirubin 0.20 mg/dL (0.1-1.2) 10/12/19 19:06 AST 18 units/L (5-40) 10/12/19 19:06 ALT 18 units/L (7-56) 10/12/19 19:06 Alkaline Phosphatase 83 units/L (35-129) 10/12/19 19:06 Total Creatine Kinase 81 units/L (30-135) 10/12/19 19:06 CK-MB (CK-2) 1.2 ng/mL (0.0-4.0) 10/12/19 19:06 CK-MB (CK-2) Rel Index 1.4 (0-4) 10/12/19 19:06 Troponin T < 0.010 ng/mL (0.00-0.029) 10/13/19 10:05 NT-Pro-B Natriuret Pep 341.8 pg/mL (0-900) 10/12/19 19:06 Total Protein 7.5 g/dL (6.3-8.2) 10/12/19 19:06 Albumin 4.0 g/dL (3.9-5) 10/12/19 19:06 Albumin/Globulin Ratio 1.1 % 10/12/19 19:06 Urine Color Yellow (Yellow) 10/12/19 22:53 Urine Turbidity Slightly-cloudy (Clear) 10/12/19 22:53 Urine pH 6.0 (5.0-7.0) 10/12/19 22:53 Ur Specific Black 1.014 (1.003-1.030) 10/12/19 22:53 Urine Protein <15 mg/dl mg/dL (Negative) 10/12/19 22:53 Urine Glucose (UA) Neg mg/dL (Negative) 10/12/19 22:53 Urine Ketones Neg mg/dL (Negative) 10/12/19 22:53 Urine Blood Neg (Negative) 10/12/19 22:53 Urine Nitrite Neg (Negative) 10/12/19 22:53 Urine Bilirubin Neg (Negative) 10/12/19 22:53 Urine Urobilinogen < 2.0 mg/dL (<2.0) 10/12/19 22:53 Ur Leukocyte Esterase Lg (Negative) 10/12/19 22:53 Urine WBC (Auto) 84.0 /HPF (0.0-6.0) H 10/12/19 22:53 Urine RBC (Auto) 2.0 /HPF (0.0-6.0) 10/12/19 22:53 U Epithel Cells (Auto) 3.0 /HPF (0-13.0) 10/12/19 22:53 Urine Bacteria (Auto) 1+ /HPF (Negative) 10/12/19 22:53 Hyaline Casts 1 /LPF 10/12/19 22:53 Urine Mucus Few /HPF 10/12/19 22:53 Urine Yeast (Budding) 1+ /HPF 10/12/19 22:53 Microbiology: Microbiology 10/12/19 22:53 Urine,Clean Catch Urine Culture - Preliminary - Diagnostic Impressions Diagnostic Impressions: Echocardiogram 10/12/19 23:10 Transthoracic Echocardiogram Indication: Chest Pain BP: 103/63 HR: 66 Findings Left Ventricle: The left ventricular chamber size is normal. Global left ventricular wall motion and contractility are within normal limits. Global left ventricular systolic function is at the lower limits of normal. The estimated ejection fraction is 50-55%. Abnormal left ventricular diastolic function is observed. The left ventricular diastolic filling pattern is consistent with pseudonormalization. Left Atrium: The left atrium is mildly dilated. Right Ventricle: The right ventricular cavity size is normal. The right ventricular global systolic function is normal. Right Atrium: The right atrium appears normal. The interatrial septum appears normal. Aortic Valve: The aortic valve structure is normal. There is no evidence of aortic regurgitation. There is no evidence of aortic stenosis. Mitral Valve: The mitral valve leaflets appear normal. There is mild mitral regurgitation. There is no evidence of mitral stenosis. Tricuspid Valve: The tricuspid valve leaflets are normal. There is trace tricuspid regurgitation. The right ventricular systolic pressure is calculated at 27 mmHg. There is no tricuspid stenosis. Pulmonic Valve: The pulmonic valve appears normal. There is mild pulmonic regurgitation. There is no pulmonic stenosis. Pericardium: There is no pericardial effusion. Aorta: There is no dilatation of the ascending aorta. There is no dilatation of the aortic arch. There is no dilatation of the descending thoracic aorta. There is no dilatation of the aortic root. Venous: The inferior vena cava appears normal in size. There is a greater than 50% respiratory change in the inferior vena cava dimension. Measurements Chambers 2D Name Value Normal Range IVSd (2D) 0.93 cm (0.6 - 1.1) LVPWd (2D) 0.92 cm (0.6 - 1.1) LVIDd (2D) 4.85 cm (3.7 - 5.6) LVIDs (2D) 3.63 cm (2 - 3.8) LV FS (2D) 25.26 % - EF Teichholz (2D) 49.75 % - Ao root diameter (2D) 2.01 cm (2 - 3.7) Volumes/Mass Name Value Normal Range LA ESV SP 4CH (A/L) 49.06 ml - LA ESV SP 2CH (A/L) 43.46 ml - LA ESV BP (A/L) 50.21 ml - LA ESV SP 4CH (MOD) 43.1 ml - LA ESV SP 2CH (MOD) 41.49 ml - LA ESV BP (MOD) 45.88 ml - LA ESV BP (MOD) index 27.15 ml/m2 - LV EDV SP 4CH (MOD) 108.13 ml - LV ESV SP 4CH (MOD) 57.57 ml - EF SP 4CH (MOD) 46.76 % - LV EDV SP 2CH (MOD) 99.03 ml - LV ESV SP 2CH (MOD) 42.95 ml - EF SP 2CH (MOD) 56.63 % - LV EDV BP 103.38 ml - LV ESV BP 54.18 ml - BP EF (MOD) 47.59 % - Diastolic/Systolic Function Name Value Normal Range MV E-wave Vmax 0.89 m/sec - MV deceleration time 183.25 msec - MV A-wave Vmax 0.68 m/sec - MV E:A ratio 1.32 ratio - Aortic Valve Name Value Normal Range AV Vmax 1.54 m/sec - AV VTI 33.92 cm - AV peak gradient 9.49 mmHg - AV mean gradient 4.57 mmHg - LVOT diameter 1.87 cm - LVOT Vmax 1.11 m/sec - LVOT VTI 18.85 cm - LVOT peak gradient 4.96 mmHg - LVOT mean gradient 2.49 mmHg - SV LVOT 51.68 ml - KOSTA (continuity Vmax) 1.98 cm2 - KOSTA (continuity VTI) 1.52 cm2 - Ascending Ao 1.91 cm - Tricuspid Valve Name Value Normal Range TR Vmax 2.42 m/sec - TR peak gradient 23.52 mmHg - RAP 3 mmHg - RVSP 27 mmHg - Pulmonic Valve/Qp:Qs Name Value Normal Range PV Vmax 1.17 m/sec - PV peak gradient 5.44 mmHg - [place] end-diastolic Vmax 1.39 m/sec - PV acceleration time 76.12 msec - Naik/IV: Voiding Method Toilet IV Catheter Type [Right INT / Saline Lock Forearm] Active Medications - Current Medications Current Medications: Generic Name Dose Route Start Last Admin Trade Name Freq PRN Reason Stop Dose Admin Acetaminophen 650 mg 10/12/19 23:05 Tylenol PO Q4H PRN Pain MILD(1-3)/Fever >100.5/CREWS Aspirin 81 mg 10/13/19 10:00 10/14/19 09:03 Halfprin Ec PO 81 mg QDAY AMELIA Administration Atorvastatin Calcium 40 mg 10/13/19 22:00 10/13/19 22:34 Lipitor PO 40 mg QHS AMELIA Administration Diltiazem HCl 240 mg 10/13/19 08:00 10/14/19 08:05 Cardizem Cd PO 240 mg QDAY@0800 AMELIA Administration Gabapentin 100 mg 10/13/19 08:00 10/14/19 15:26 Gabapentin PO 100 mg Q8H AMELIA Administration Ceftriaxone Sodium 1 gm in 50 mls @ 100 mls/hr 10/13/19 10:00 10/14/19 09:03 Rocephin/Ns 1 Gm/50 Ml IV 10/19/19 10:29 100 mls/hr Q24HR AMELIA Administration Protocol Magnesium Hydroxide 30 ml 10/12/19 23:05 Milk Of Magnesia PO Q4H PRN Constipation Morphine Sulfate 2 mg 10/12/19 23:05 10/14/19 13:42 Morphine IV 2 mg Q5MIN PRN Administration Chest Pain unrelieved by NTG Nitroglycerin 0.4 mg 10/12/19 23:05 Nitrostat SL Q5M PRN Chest Pain Ondansetron HCl 4 mg 10/12/19 23:05 Zofran IV Q8H PRN Nausea And Vomiting Primidone 50 mg 10/13/19 10:00 10/14/19 09:03 Mysoline PO 50 mg BID AMELIA Administration Rivaroxaban 15 mg 10/13/19 10:00 10/14/19 09:03 Xarelto PO 15 mg QAM AMELIA Administration Sodium Chloride 10 ml 10/13/19 10:00 10/14/19 09:04 Sodium Chloride Flush Syringe 10 Ml IV 10 ml BID AMELIA Administration Sodium Chloride 10 ml 10/12/19 23:05 Sodium Chloride Flush Syringe 10 Ml IV PRN PRN LINE FLUSH
[2019-10-15] MEDS: GABAPENTIN 100 MG CAP PO SCH ×3 (00:52→17:05)
[2019-10-15] MEDS: dilTIAZem CD 240 MG CAP PO SCH (08:40)
[2019-10-15] MEDS: cefTRIAXone/NS 1 GM/50 ML 1 GM/50 ML BAG IV SCH (09:07)
[2019-10-15] MEDS: ASPIRIN EC 81 MG TAB PO SCH (09:08)
[2019-10-15] MEDS: RIVAROXABAN 15 MG TAB PO SCH (09:08)
[2019-10-15] MEDS: PRIMIDONE 50 MG TAB PO SCH ×2 (10:46→22:05)
--- NOTE | 2019-10-15 11:24 | Progress Note ---
Assessment and Plan - Patient Problems (1) Paroxysmal atrial fibrillation Current Visit: Yes Status: Acute Plan to address problem: Continue rate control as per cardiology team, patient is pending electrophysiology evaluation. (2) Angina at rest Current Visit: Yes Status: Acute Plan to address problem: Serial cardiac enzymes, EKG, telemetry, pain management, morphine, supplemental oxygen, nitro, aspirin, cardiology team consulted. (3) Diastolic CHF Current Visit: Yes Status: Acute Qualifiers: Heart failure chronicity: acute on chronic Qualified Code(s): I50.33 - Acute on chronic diastolic (congestive) heart failure Plan to address problem: Strict I's/O, daily weight, monitor urine output every shift, afterload reduction, blood pressure control, cardiology team consulted. (4) Hyperlipidemia Current Visit: Yes Status: Acute Qualifiers: Hyperlipidemia type: mixed hyperlipidemia Qualified Code(s): E78.2 - Mixed hyperlipidemia Plan to address problem: Low-cholesterol diet, statin therapy as clinically indicated. (5) Hypertension Current Visit: Yes Status: Acute Qualifiers: Hypertension type: essential hypertension Qualified Code(s): I10 - Essential (primary) hypertension Plan to address problem: Monitor blood pressure every shift, continue medical management (6) UTI (urinary tract infection) Current Visit: Yes Status: Acute Qualifiers: Urinary tract infection type: acute cystitis Hematuria presence: with hematuria Qualified Code(s): N30.01 - Acute cystitis with hematuria Plan to address problem: Urinalysis, CBC, IV antibiotic therapy. (7) Advance care planning Current Visit: Yes Status: Acute Plan to address problem: Disease education conducted, patient is full code, patient prognosis discussed, patient knowledges understanding and agreement with care plan, +30 minutes. (8) Symptomatic bradycardia Current Visit: Yes Status: Acute Plan to address problem: Electrophysiology evaluation as per cardiology service, continue telemetry monitoring, (9) DVT prophylaxis Current Visit: Yes Status: Acute Plan to address problem: SCD to bilateral lower extremities while in bed, patient is ambulatory History Interval history: 64 YO Female HD #3 with Paroxysmal Atrial Fib,as well as Symptomatic Bradycardia and is pending EP evaluation, Diastolic CHF, UTI, CAD. Patient rested comfortably overnight. Patient denies fever, chills, chest pain, palpitations, shortness of breath. No reported nursing events. Hospitalist Physical - Constitutional Vitals: Temp Pulse Resp BP Pulse Ox 98.3 F 51 L 18 125/55 99 10/15/19 11:13 10/15/19 11:13 10/15/19 11:13 10/15/19 11:13 10/15/19 11:13 General appearance: Present: no acute distress, well-nourished - EENT Eyes: Present: PERRL - Neck Neck: Present: supple - Respiratory Respiratory effort: normal Respiratory: bilateral: CTA - Cardiovascular Rhythm: regular Heart Sounds: Present: S1 & S2 - Extremities Extremities: no ischemia Peripheral Pulses: within normal limits - Abdominal General gastrointestinal: soft, non-tender, non-distended - Integumentary Integumentary: Present: clear, warm, dry - Psychiatric Psychiatric: appropriate mood/affect, cooperative - Neurologic Neurologic: CNII-XII intact HEART Score - HEART Score EKG: Non-specific Age: > 65 Risk factors: 1-2 risk factors Troponin: Troponin T < 0.010 ng/mL (0.00-0.029) 10/13/19 10:05 Troponin: < normal limit Results - Labs CBC & Chem 7: 10/13/19 10:05 10/15/19 04:04 Labs: Laboratory Last Values WBC 6.3 K/mm3 (4.5-11.0) 10/13/19 10:05 RBC 3.06 M/mm3 (3.65-5.03) L 10/13/19 10:05 Hgb 8.8 gm/dl (10.1-14.3) L 10/13/19 10:05 Hct 26.8 % (30.3-42.9) L 10/13/19 10:05 MCV 88 fl (79-97) 10/13/19 10:05 MCH 29 pg (28-32) 10/13/19 10:05 MCHC 33 % (30-34) 10/13/19 10:05 RDW 15.0 % (13.2-15.2) 10/13/19 10:05 Plt Count 221 K/mm3 (140-440) 10/13/19 10:05 Lymph % (Auto) 13.1 % (13.4-35.0) L 10/13/19 10:05 [place] % (Auto) 5.2 % (0.0-7.3) 10/13/19 10:05 Eos % (Auto) 2.0 % (0.0-4.3) 10/13/19 10:05 Baso % (Auto) 0.6 % (0.0-1.8) 10/13/19 10:05 Lymph # 0.8 K/mm3 (1.2-5.4) L 10/13/19 10:05 [place] # 0.3 K/mm3 (0.0-0.8) 10/13/19 10:05 Eos # 0.1 K/mm3 (0.0-0.4) 10/13/19 10:05 Baso # 0.0 K/mm3 (0.0-0.1) 10/13/19 10:05 Seg Neutrophils % 79.1 % (40.0-70.0) H 10/13/19 10:05 Seg Neutrophils # 5.0 K/mm3 (1.8-7.7) 10/13/19 10:05 PT 14.8 Sec. (12.2-14.9) 10/13/19 10:05 INR 1.18 (0.87-1.13) H 10/13/19 10:05 APTT 28.8 Sec. (24.2-36.6) 10/12/19 19:06 Sodium 152 mmol/L (137-145) H D 10/13/19 10:05 Potassium 4.6 mmol/L (3.6-5.0) D 10/15/19 04:04 Chloride 110.9 mmol/L (98-107) H 10/13/19 10:05 Carbon Dioxide 18 mmol/L (22-30) L D 10/13/19 10:05 Anion Gap 26 mmol/L 10/13/19 10:05 BUN 13 mg/dL (7-17) 10/13/19 10:05 Creatinine 0.5 mg/dL (0.7-1.2) L 10/13/19 10:05 Estimated GFR > 60 ml/min 10/13/19 10:05 BUN/Creatinine Ratio 26 % 10/13/19 10:05 Glucose 107 mg/dL (65-100) H 10/13/19 10:05 Calcium 7.4 mg/dL (8.4-10.2) L D 10/13/19 10:05 Total Bilirubin 0.20 mg/dL (0.1-1.2) 10/12/19 19:06 AST 18 units/L (5-40) 10/12/19 19:06 ALT 18 units/L (7-56) 10/12/19 19:06 Alkaline Phosphatase 83 units/L (35-129) 10/12/19 19:06 Total Creatine Kinase 81 units/L (30-135) 10/12/19 19:06 CK-MB (CK-2) 1.2 ng/mL (0.0-4.0) 10/12/19 19:06 CK-MB (CK-2) Rel Index 1.4 (0-4) 10/12/19 19:06 Troponin T < 0.010 ng/mL (0.00-0.029) 10/13/19 10:05 NT-Pro-B Natriuret Pep 341.8 pg/mL (0-900) 10/12/19 19:06 Total Protein 7.5 g/dL (6.3-8.2) 10/12/19 19:06 Albumin 4.0 g/dL (3.9-5) 10/12/19 19:06 Albumin/Globulin Ratio 1.1 % 10/12/19 19:06 Urine Color Yellow (Yellow) 10/12/19 22:53 Urine Turbidity Slightly-cloudy (Clear) 10/12/19 22:53 Urine pH 6.0 (5.0-7.0) 10/12/19 22:53 Ur Specific [place] 1.014 (1.003-1.030) 10/12/19 22:53 Urine Protein <15 mg/dl mg/dL (Negative) 10/12/19 22:53 Urine Glucose (UA) Neg mg/dL (Negative) 10/12/19 22:53 Urine Ketones Neg mg/dL (Negative) 10/12/19 22:53 Urine Blood Neg (Negative) 10/12/19 22:53 Urine Nitrite Neg (Negative) 10/12/19 22:53 Urine Bilirubin Neg (Negative) 10/12/19 22:53 Urine Urobilinogen < 2.0 mg/dL (<2.0) 10/12/19 22:53 Ur Leukocyte Esterase Lg (Negative) 10/12/19 22:53 Urine WBC (Auto) 84.0 /HPF (0.0-6.0) H 10/12/19 22:53 Urine RBC (Auto) 2.0 /HPF (0.0-6.0) 10/12/19 22:53 U Epithel Cells (Auto) 3.0 /HPF (0-13.0) 10/12/19 22:53 Urine Bacteria (Auto) 1+ /HPF (Negative) 10/12/19 22:53 Hyaline Casts 1 /LPF 10/12/19 22:53 Urine Mucus Few /HPF 10/12/19 22:53 Urine Yeast (Budding) 1+ /HPF 10/12/19 22:53 Microbiology: Microbiology 10/12/19 22:53 Urine,Clean Catch Urine Culture - Final - Diagnostic Impressions Diagnostic Impressions: Echocardiogram 10/12/19 23:10 Transthoracic Echocardiogram Indication: Chest Pain BP: 103/63 HR: 66 Findings Left Ventricle: The left ventricular chamber size is normal. Global left ventricular wall motion and contractility are within normal limits. Global left ventricular systolic function is at the lower limits of normal. The estimated ejection fraction is 50-55%. Abnormal left ventricular diastolic function is observed. The left ventricular diastolic filling pattern is consistent with pseudonormalization. Left Atrium: The left atrium is mildly dilated. Right Ventricle: The right ventricular cavity size is normal. The right ventricular global systolic function is normal. Right Atrium: The right atrium appears normal. The interatrial septum appears normal. Aortic Valve: The aortic valve structure is normal. There is no evidence of aortic regurgitation. There is no evidence of aortic stenosis. Mitral Valve: The mitral valve leaflets appear normal. There is mild mitral regurgitation. There is no evidence of mitral stenosis. Tricuspid Valve: The tricuspid valve leaflets are normal. There is trace tricuspid regurgitation. The right ventricular systolic pressure is calculated at 27 mmHg. There is no tricuspid stenosis. Pulmonic Valve: The pulmonic valve appears normal. There is mild pulmonic regurgitation. There is no pulmonic stenosis. Pericardium: There is no pericardial effusion. Aorta: There is no dilatation of the ascending aorta. There is no dilatation of the aortic arch. There is no dilatation of the descending thoracic aorta. There is no dilatation of the aortic root. Venous: The inferior vena cava appears normal in size. There is a greater than 50% respiratory change in the inferior vena cava dimension. Measurements Chambers 2D Name Value Normal Range IVSd (2D) 0.93 cm (0.6 - 1.1) LVPWd (2D) 0.92 cm (0.6 - 1.1) LVIDd (2D) 4.85 cm (3.7 - 5.6) LVIDs (2D) 3.63 cm (2 - 3.8) LV FS (2D) 25.26 % - EF Teichholz (2D) 49.75 % - Ao root diameter (2D) 2.01 cm (2 - 3.7) Volumes/Mass Name Value Normal Range LA ESV SP 4CH (A/L) 49.06 ml - LA ESV SP 2CH (A/L) 43.46 ml - LA ESV BP (A/L) 50.21 ml - LA ESV SP 4CH (MOD) 43.1 ml - LA ESV SP 2CH (MOD) 41.49 ml - LA ESV BP (MOD) 45.88 ml - LA ESV BP (MOD) index 27.15 ml/m2 - LV EDV SP 4CH (MOD) 108.13 ml - LV ESV SP 4CH (MOD) 57.57 ml - EF SP 4CH (MOD) 46.76 % - LV EDV SP 2CH (MOD) 99.03 ml - LV ESV SP 2CH (MOD) 42.95 ml - EF SP 2CH (MOD) 56.63 % - LV EDV BP 103.38 ml - LV ESV BP 54.18 ml - BP EF (MOD) 47.59 % - Diastolic/Systolic Function Name Value Normal Range MV E-wave Vmax 0.89 m/sec - MV deceleration time 183.25 msec - MV A-wave Vmax 0.68 m/sec - MV E:A ratio 1.32 ratio - Aortic Valve Name Value Normal Range AV Vmax 1.54 m/sec - AV VTI 33.92 cm - AV peak gradient 9.49 mmHg - AV mean gradient 4.57 mmHg - LVOT diameter 1.87 cm - LVOT Vmax 1.11 m/sec - LVOT VTI 18.85 cm - LVOT peak gradient 4.96 mmHg - LVOT mean gradient 2.49 mmHg - SV LVOT 51.68 ml - KOSTA (continuity Vmax) 1.98 cm2 - KOSTA (continuity VTI) 1.52 cm2 - Ascending Ao 1.91 cm - Tricuspid Valve Name Value Normal Range TR Vmax 2.42 m/sec - TR peak gradient 23.52 mmHg - RAP 3 mmHg - RVSP 27 mmHg - Pulmonic Valve/Qp:Qs Name Value Normal Range PV Vmax 1.17 m/sec - PV peak gradient 5.44 mmHg - ND end-diastolic Vmax 1.39 m/sec - PV acceleration time 76.12 msec - Naik/IV: Voiding Method Toilet IV Catheter Type [Right INT / Saline Lock Forearm] Active Medications - Current Medications Current Medications: Generic Name Dose Route Start Last Admin Trade Name Freq PRN Reason Stop Dose Admin Acetaminophen 650 mg 10/12/19 23:05 Tylenol PO Q4H PRN Pain MILD(1-3)/Fever >100.5/CREWS Aspirin 81 mg 10/13/19 10:00 10/15/19 09:08 Halfprin Ec PO 81 mg QDAY AMELIA Administration Atorvastatin Calcium 40 mg 10/13/19 22:00 10/14/19 23:28 Lipitor PO 40 mg QHS AMELIA Administration Diltiazem HCl 240 mg 10/13/19 08:00 10/15/19 08:40 Cardizem Cd PO 240 mg QDAY@0800 AMELIA Administration Gabapentin 100 mg 10/13/19 08:00 10/15/19 08:40 Gabapentin PO 100 mg Q8H AMELIA Administration Ceftriaxone Sodium 1 gm in 50 mls @ 100 mls/hr 10/13/19 10:00 10/15/19 09:07 Rocephin/Ns 1 Gm/50 Ml IV 10/19/19 10:29 100 mls/hr Q24HR AMELIA Administration Protocol Magnesium Hydroxide 30 ml 10/12/19 23:05 Milk Of Magnesia PO Q4H PRN Constipation Morphine Sulfate 2 mg 10/12/19 23:05 10/14/19 13:42 Morphine IV 2 mg Q5MIN PRN Administration Chest Pain unrelieved by NTG Nitroglycerin 0.4 mg 10/12/19 23:05 Nitrostat SL Q5M PRN Chest Pain Ondansetron HCl 4 mg 10/12/19 23:05 Zofran IV Q8H PRN Nausea And Vomiting Primidone 50 mg 10/13/19 10:00 10/15/19 10:46 Mysoline PO 50 mg BID AMELIA Administration Rivaroxaban 15 mg 10/13/19 10:00 10/15/19 09:08 Xarelto PO 15 mg QAM AMELIA Administration Sodium Chloride 10 ml 10/13/19 10:00 10/15/19 10:46 Sodium Chloride Flush Syringe 10 Ml IV 10 ml BID AMELIA Administration Sodium Chloride 10 ml 10/12/19 23:05 Sodium Chloride Flush Syringe 10 Ml IV PRN PRN LINE FLUSH
--- NOTE | 2019-10-15 11:30 | Progress Note ---
Assessment and Plan Paroxysmal atrial fibrillation/flutter on Xarelto for anticoagulation on Diltiazem CD 240mg for suppression Essential hypertension History of surgical ASD repair Multiple pauses on telemetry pt remains asymptomatic recent TSH level is normal at 0.97. 09/2019: Normal myocardial perfusion scan. Echo this admission shows a normal LVEF 550-55%. Initiate amiodarone for suppression of paroxysmal atrial fibrillation. We will reduce Diltiazem CD to 180mg daily. Continue telemetry monitoring. Subjective Date of service: 10/15/19 Interval history: Multiple pauses seen on telemetry of less than 3 sec. Patient remains asymptomatic. Objective Vital Signs Temp Pulse Resp BP BP Pulse Ox 10/15/19 11:13 98.3 F 51 L 18 125/55 99 10/15/19 08:40 75 149/78 10/15/19 07:17 97.6 F 64 20 152/81 97 10/15/19 04:00 98 F 53 L 16 121/56 98 10/15/19 00:00 98.3 F 63 16 131/69 100 10/14/19 23:00 54 L 10/14/19 19:25 98.1 F 72 19 131/48 97 10/14/19 16:43 98.2 F 102 H 18 97/55 100 10/14/19 14:12 14 10/14/19 13:42 16 - Physical Examination General: No Apparent Distress HEENT: Positive: PERRL Neck: Positive: trachea midline Cardiac: Positive: Reg Rate and Rhythm Neuro: Positive: Grossly Intact Extremities: Absent: edema - Labs and Meds Comprehensive Metabolic Panel 10/15/19 Range/Units 04:04 Potassium 4.6 D (3.6-5.0) mmol/L
[2019-10-15] MEDS ORDERED: AMIODARONE 300 MG in DEXTROSE 5% IN WATER 100 ML IV ONE (12:00)
[2019-10-15] MEDS: AMIODARONE 200 MG TAB PO SCH (12:59)
[2019-10-16] MEDS: GABAPENTIN 100 MG CAP PO SCH ×3 (00:56→16:52)
[2019-10-16] MEDS: ASPIRIN EC 81 MG TAB PO SCH (09:50)
[2019-10-16] MEDS: RIVAROXABAN 15 MG TAB PO SCH (09:51)
[2019-10-16] MEDS: AMIODARONE 200 MG TAB PO SCH (09:51)
[2019-10-16] MEDS: PRIMIDONE 50 MG TAB PO SCH ×2 (09:51→21:50)
[2019-10-16] MEDS: cefTRIAXone/NS 1 GM/50 ML 1 GM/50 ML BAG IV SCH (09:52)
[2019-10-16] MEDS ORDERED: dilTIAZem CD 180 MG CAP PO SCH (10:00)
--- NOTE | 2019-10-16 10:54 | Progress Note ---
Assessment and Plan Paroxysmal atrial fibrillation/flutter on Xarelto for anticoagulation on Diltiazem CD 240mg for suppression TSH 0.97 on labs 1 week ago Essential hypertension History of surgical ASD repair Multiple pauses on telemetry pt remains asymptomatic recent TSH level is normal at 0.97. 09/2019: Normal myocardial perfusion scan. Echo this admission shows a normal LVEF 550-55%. Recommendations: Discontinue Diltiazem. Continue amiodarone for suppression of paroxysmal atrial fibrillation. Continue telemetry monitoring. Subjective Date of service: 10/16/19 Interval history: Patient is resting in bed comfortably and has no complaints. Sinus pauses seen on telemetry of less than 2 seconds overnight. Patient remains asymptomatic. Objective Vital Signs Temp Pulse Pulse Resp BP Pulse Ox 10/16/19 09:50 55 L 122/57 10/16/19 07:13 98.0 F 57 L 19 137/58 99 10/16/19 04:01 98.4 F 56 L 18 139/82 100 10/15/19 23:45 98.1 F 64 16 132/60 95 10/15/19 20:21 53 L 10/15/19 19:05 98.1 F 53 L 18 111/54 98 10/15/19 15:27 97.8 F 53 L 16 117/54 99 10/15/19 11:13 98.3 F 51 L 18 125/55 99 10/15/19 11:00 57 L 97 - Physical Examination General: No Apparent Distress HEENT: Positive: PERRL Neck: Positive: trachea midline Cardiac: Positive: Reg Rate and Rhythm Lungs: Positive: Decreased Breath Sounds Neuro: Positive: Grossly Intact Musculoskeletal: Normal Range of Motion, other (lipoma right shoulder)
--- NOTE | 2019-10-16 13:26 | Progress Note ---
Assessment and Plan Assessment and plan: 64 YO Female with Paroxysmal Atrial Fib,as well as Symptomatic Bradycardia and is pending EP evaluation, Diastolic CHF, UTI, CAD. Patient rested comfortably overnight. Patient denies fever, chills, chest pain, palpitations, shortness of breath. No reported nursing events. History of surgical ASD repair - Patient Problems (1) Paroxysmal atrial fibrillation Current Visit: Yes Status: Acute Plan to address problem: Continue rate control as per cardiology team, patient is pending electrophy siology evaluation. Medications adjusted by cardiology. TSH level is normal at 0.97 Continue anticoagulation (2) Angina at rest Current Visit: Yes Status: Acute Plan to address problem: Serial cardiac enzymes, EKG, telemetry, pain management, morphine, supplemental oxygen, nitro, aspirin, cardiology team consulted. (3) Diastolic CHF Current Visit: Yes Status: Acute Qualifiers: Heart failure chronicity: acute on chronic Qualified Code(s): I50.33 - Acute on chronic diastolic (congestive) heart failure Plan to address problem: Strict I's/O, daily weight, monitor urine output every shift, afterload reduction, blood pressure control, cardiology team consulted. (4) Hyperlipidemia Current Visit: Yes Status: Acute Qualifiers: Hyperlipidemia type: mixed hyperlipidemia Qualified Code(s): E78.2 - Mixed hyperlipidemia Plan to address problem: Low-cholesterol diet, statin therapy as clinically indicated. (5) Hypertension Current Visit: Yes Status: Acute Qualifiers: Hypertension type: essential hypertension Qualified Code(s): I10 - Essential (primary) hypertension Plan to address problem: Monitor blood pressure every shift, continue medical management (6) UTI (urinary tract infection) Current Visit: Yes Status: Acute Qualifiers: Urinary tract infection type: acute cystitis Hematuria presence: with hematuria Qualified Code(s): N30.01 - Acute cystitis with hematuria Plan to address problem: Urinalysis, CBC, IV antibiotic therapy. (7) Advance care planning Current Visit: Yes Status: Acute Plan to address problem: Disease education conducted, patient is full code, patient prognosis discussed, patient knowledges understanding and agreement with care plan, +30 minutes. (8) Symptomatic bradycardia Current Visit: Yes Status: Acute Plan to address problem: Electrophysiology evaluation as per cardiology service, continue telemetry monitoring, (9) DVT prophylaxis Current Visit: Yes Status: Acute Plan to address problem: SCD to bilateral lower extremities while in bed, patient is ambulatory History Interval history: Patient seen and examined clinically stable no new complaints at this time. Hospitalist Physical - Physical exam Narrative exam: VITAL SIGNS: Reviewed. GENERAL: The patient appears normally developed, Vital signs as documented. HEAD: No signs of head trauma. EYES: Pupils are equal. Extraocular motions intact. EARS: Hearing grossly intact. MOUTH: Oropharynx is normal. NECK: No adenopathy, no JVD. CHEST: Chest with clear breath sounds bilaterally. No wheezes, rales, or rhonchi. CARDIAC: Regular rate and rhythm. S1 and S2, without murmurs, gallops, or rubs. VASCULAR: No Edema. Peripheral pulses normal and equal in all extremities. ABDOMEN: Soft, non tender and non distended. No rebound or guarding, and no masses palpated. Bowel Sounds normal. MUSCULOSKELETAL: Good range of motion of all major joints. Extremities without clubbing, cyanosis or edema. NEUROLOGIC EXAM: Alert and oriented x 3 No focal sensory or strength deficits. Speech normal. Follows commands. PSYCHIATRIC: Mood normal. SKIN: detial exam as documented in skin assessment - Constitutional Vitals: Temp Pulse Resp BP Pulse Ox 97.6 F 57 L 19 141/63 97 10/16/19 11:00 10/16/19 12:29 10/16/19 11:00 10/16/19 11:00 10/16/19 11:00 General appearance: Present: no acute distress, well-nourished HEART Score - HEART Score EKG: Non-specific Age: > 65 Risk factors: 1-2 risk factors Troponin: Troponin T < 0.010 ng/mL (0.00-0.029) 10/13/19 10:05 Troponin: < normal limit Results - Labs CBC & Chem 7: 10/17/19 04:45 10/17/19 04:45 Labs: Laboratory Last Values WBC 6.3 K/mm3 (4.5-11.0) 10/13/19 10:05 RBC 3.06 M/mm3 (3.65-5.03) L 10/13/19 10:05 Hgb 8.8 gm/dl (10.1-14.3) L 10/13/19 10:05 Hct 26.8 % (30.3-42.9) L 10/13/19 10:05 MCV 88 fl (79-97) 10/13/19 10:05 MCH 29 pg (28-32) 10/13/19 10:05 MCHC 33 % (30-34) 10/13/19 10:05 RDW 15.0 % (13.2-15.2) 10/13/19 10:05 Plt Count 221 K/mm3 (140-440) 10/13/19 10:05 Lymph % (Auto) 13.1 % (13.4-35.0) L 10/13/19 10:05 [place] % (Auto) 5.2 % (0.0-7.3) 10/13/19 10:05 Eos % (Auto) 2.0 % (0.0-4.3) 10/13/19 10:05 Baso % (Auto) 0.6 % (0.0-1.8) 10/13/19 10:05 Lymph # 0.8 K/mm3 (1.2-5.4) L 10/13/19 10:05 [place] # 0.3 K/mm3 (0.0-0.8) 10/13/19 10:05 Eos # 0.1 K/mm3 (0.0-0.4) 10/13/19 10:05 Baso # 0.0 K/mm3 (0.0-0.1) 10/13/19 10:05 Seg Neutrophils % 79.1 % (40.0-70.0) H 10/13/19 10:05 Seg Neutrophils # 5.0 K/mm3 (1.8-7.7) 10/13/19 10:05 PT 14.8 Sec. (12.2-14.9) 10/13/19 10:05 INR 1.18 (0.87-1.13) H 10/13/19 10:05 APTT 28.8 Sec. (24.2-36.6) 10/12/19 19:06 Sodium 152 mmol/L (137-145) H D 10/13/19 10:05 Potassium 4.6 mmol/L (3.6-5.0) D 10/15/19 04:04 Chloride 110.9 mmol/L (98-107) H 10/13/19 10:05 Carbon Dioxide 18 mmol/L (22-30) L D 10/13/19 10:05 Anion Gap 26 mmol/L 07/11/20 10:05 BUN 13 mg/dL (7-17) 10/13/19 10:05 Creatinine 0.5 mg/dL (0.7-1.2) L 10/13/19 10:05 Estimated GFR > 60 ml/min 10/13/19 10:05 BUN/Creatinine Ratio 26 % 10/13/19 10:05 Glucose 107 mg/dL (65-100) H 10/13/19 10:05 Calcium 7.4 mg/dL (8.4-10.2) L D 10/13/19 10:05 Total Bilirubin 0.20 mg/dL (0.1-1.2) 10/12/19 19:06 AST 18 units/L (5-40) 10/12/19 19:06 ALT 18 units/L (7-56) 10/12/19 19:06 Alkaline Phosphatase 83 units/L (35-129) 10/12/19 19:06 Total Creatine Kinase 81 units/L (30-135) 10/12/19 19:06 CK-MB (CK-2) 1.2 ng/mL (0.0-4.0) 10/12/19 19:06 CK-MB (CK-2) Rel Index 1.4 (0-4) 10/12/19 19:06 Troponin T < 0.010 ng/mL (0.00-0.029) 10/13/19 10:05 NT-Pro-B Natriuret Pep 341.8 pg/mL (0-900) 10/12/19 19:06 Total Protein 7.5 g/dL (6.3-8.2) 10/12/19 19:06 Albumin 4.0 g/dL (3.9-5) 10/12/19 19:06 Albumin/Globulin Ratio 1.1 % 10/12/19 19:06 Urine Color Yellow (Yellow) 10/12/19 22:53 Urine Turbidity Slightly-cloudy (Clear) 10/12/19 22:53 Urine pH 6.0 (5.0-7.0) 10/12/19 22:53 Ur Specific [place] 1.014 (1.003-1.030) 10/12/19 22:53 Urine Protein <15 mg/dl mg/dL (Negative) 10/12/19 22:53 Urine Glucose (UA) Neg mg/dL (Negative) 10/12/19 22:53 Urine Ketones Neg mg/dL (Negative) 10/12/19 22:53 Urine Blood Neg (Negative) 10/12/19 22:53 Urine Nitrite Neg (Negative) 10/12/19 22:53 Urine Bilirubin Neg (Negative) 10/12/19 22:53 Urine Urobilinogen < 2.0 mg/dL (<2.0) 10/12/19 22:53 Ur Leukocyte Esterase Lg (Negative) 10/12/19 22:53 Urine WBC (Auto) 84.0 /HPF (0.0-6.0) H 10/12/19 22:53 Urine RBC (Auto) 2.0 /HPF (0.0-6.0) 10/12/19 22:53 U Epithel Cells (Auto) 3.0 /HPF (0-13.0) 10/12/19 22:53 Urine Bacteria (Auto) 1+ /HPF (Negative) 10/12/19 22:53 Hyaline Casts 1 /LPF 10/12/19 22:53 Urine Mucus Few /HPF 10/12/19 22:53 Urine Yeast (Budding) 1+ /HPF 10/12/19 22:53 - Diagnostic Impressions Diagnostic Impressions: Echocardiogram 10/12/19 23:10 Transthoracic Echocardiogram Indication: Chest Pain BP: 103/63 HR: 66 Findings Left Ventricle: The left ventricular chamber size is normal. Global left ventricular wall motion and contractility are within normal limits. Global left ventricular systolic function is at the lower limits of normal. The estimated ejection fraction is 50-55%. Abnormal left ventricular diastolic function is observed. The left ventricular diastolic filling pattern is consistent with pseudonormalization. Left Atrium: The left atrium is mildly dilated. Right Ventricle: The right ventricular cavity size is normal. The right ventricular global systolic function is normal. Right Atrium: The right atrium appears normal. The interatrial septum appears normal. Aortic Valve: The aortic valve structure is normal. There is no evidence of aortic regurgitation. There is no evidence of aortic stenosis. Mitral Valve: The mitral valve leaflets appear normal. There is mild mitral regurgitation. There is no evidence of mitral stenosis. Tricuspid Valve: The tricuspid valve leaflets are normal. There is trace tricuspid regurgitation. The right ventricular systolic pressure is calculated at 27 mmHg. There is no tricuspid stenosis. Pulmonic Valve: The pulmonic valve appears normal. There is mild pulmonic regurgitation. There is no pulmonic stenosis. Pericardium: There is no pericardial effusion. Aorta: There is no dilatation of the ascending aorta. There is no dilatation of the aortic arch. There is no dilatation of the descending thoracic aorta. There is no dilatation of the aortic root. Venous: The inferior vena cava appears normal in size. There is a greater than 50% respiratory change in the inferior vena cava dimension. Measurements Chambers 2D Name Value Normal Range IVSd (2D) 0.93 cm (0.6 - 1.1) LVPWd (2D) 0.92 cm (0.6 - 1.1) LVIDd (2D) 4.85 cm (3.7 - 5.6) LVIDs (2D) 3.63 cm (2 - 3.8) LV FS (2D) 25.26 % - EF Teichholz (2D) 49.75 % - Ao root diameter (2D) 2.01 cm (2 - 3.7) Volumes/Mass Name Value Normal Range LA ESV SP 4CH (A/L) 49.06 ml - LA ESV SP 2CH (A/L) 43.46 ml - LA ESV BP (A/L) 50.21 ml - LA ESV SP 4CH (MOD) 43.1 ml - LA ESV SP 2CH (MOD) 41.49 ml - LA ESV BP (MOD) 45.88 ml - LA ESV BP (MOD) index 27.15 ml/m2 - LV EDV SP 4CH (MOD) 108.13 ml - LV ESV SP 4CH (MOD) 57.57 ml - EF SP 4CH (MOD) 46.76 % - LV EDV SP 2CH (MOD) 99.03 ml - LV ESV SP 2CH (MOD) 42.95 ml - EF SP 2CH (MOD) 56.63 % - LV EDV BP 103.38 ml - LV ESV BP 54.18 ml - BP EF (MOD) 47.59 % - Diastolic/Systolic Function Name Value Normal Range MV E-wave Vmax 0.89 m/sec - MV deceleration time 183.25 msec - MV A-wave Vmax 0.68 m/sec - MV E:A ratio 1.32 ratio - Aortic Valve Name Value Normal Range AV Vmax 1.54 m/sec - AV VTI 33.92 cm - AV peak gradient 9.49 mmHg - AV mean gradient 4.57 mmHg - LVOT diameter 1.87 cm - LVOT Vmax 1.11 m/sec - LVOT VTI 18.85 cm - LVOT peak gradient 4.96 mmHg - LVOT mean gradient 2.49 mmHg - SV LVOT 51.68 ml - KOSTA (continuity Vmax) 1.98 cm2 - KOSTA (continuity VTI) 1.52 cm2 - Ascending Ao 1.91 cm - Tricuspid Valve Name Value Normal Range TR Vmax 2.42 m/sec - TR peak gradient 23.52 mmHg - RAP 3 mmHg - RVSP 27 mmHg - Pulmonic Valve/Qp:Qs Name Value Normal Range PV Vmax 1.17 m/sec - PV peak gradient 5.44 mmHg - ID end-diastolic Vmax 1.39 m/sec - PV acceleration time 76.12 msec - Naik/IV: Voiding Method Toilet IV Catheter Type [Left Hand] INT / Saline Lock IV Catheter Type [Right INT / Saline Lock Forearm] Active Medications - Current Medications Current Medications: Generic Name Dose Route Start Last Admin Trade Name Freq PRN Reason Stop Dose Admin Acetaminophen 650 mg 10/12/19 23:05 Tylenol PO Q4H PRN Pain MILD(1-3)/Fever >100.5/CREWS Amiodarone HCl 200 mg 10/15/19 13:00 10/16/19 09:51 Cordarone PO 200 mg QDAY AMELIA Administration Aspirin 81 mg 10/13/19 10:00 10/16/19 09:50 Halfprin Ec PO 81 mg QDAY AMELIA Administration Atorvastatin Calcium 40 mg 10/13/19 22:00 10/15/19 22:05 Lipitor PO 40 mg QHS AMELIA Administration Gabapentin 100 mg 10/13/19 08:00 10/16/19 08:00 Gabapentin PO 100 mg Q8H AMELIA Administration Ceftriaxone Sodium 1 gm in 50 mls @ 100 mls/hr 10/13/19 10:00 10/16/19 09:52 Rocephin/Ns 1 Gm/50 Ml IV 10/19/19 10:29 100 mls/hr Q24HR AMELIA Administration Protocol Magnesium Hydroxide 30 ml 10/12/19 23:05 Milk Of Magnesia PO Q4H PRN Constipation Morphine Sulfate 2 mg 10/12/19 23:05 10/14/19 13:42 Morphine IV 2 mg Q5MIN PRN Administration Chest Pain unrelieved by NTG Nitroglycerin 0.4 mg 10/12/19 23:05 Nitrostat SL Q5M PRN Chest Pain Ondansetron HCl 4 mg 10/12/19 23:05 Zofran IV Q8H PRN Nausea And Vomiting Primidone 50 mg 10/13/19 10:00 10/16/19 09:51 Mysoline PO 50 mg BID AMELIA Administration Rivaroxaban 15 mg 10/13/19 10:00 10/16/19 09:51 Xarelto PO 15 mg QAM AMELIA Administration Sodium Chloride 10 ml 10/13/19 10:00 10/16/19 09:52 Sodium Chloride Flush Syringe 10 Ml IV 10 ml BID AMELIA Administration Sodium Chloride 10 ml 10/12/19 23:05 Sodium Chloride Flush Syringe 10 Ml IV PRN PRN LINE FLUSH
[2019-10-17] MEDS: GABAPENTIN 100 MG CAP PO SCH ×2 (01:40→11:58)
[2019-10-17] MEDS: MORPHINE 2 MG/1 ML INJ IV PRN (05:02)
[2019-10-17 05:32] LABS: Hemoglobin 8.6 gm/dl (10.1-14.3); Mean Corpuscular HGB Conc 33 % (30-34); Mean Corpuscular Volume 88 fl (79-97); Platelet Count 203 K/mm3 (140-440); Red Blood Count 2.96 M/mm3 (3.65-5.03); Red Cell Distribution Width 15.5 % (13.2-15.2)
[2019-10-17 05:53] LABS: BUN/Creatinine Ratio 28; Blood Urea Nitrogen 17 mg/dL (7-17); Calcium 9.5 mg/dL (8.4-10.2); Hemolysis Index 21
[2019-10-17] MEDS: cefTRIAXone/NS 1 GM/50 ML 1 GM/50 ML BAG IV SCH (10:19)
[2019-10-17] MEDS: PRIMIDONE 50 MG TAB PO SCH (10:19)
[2019-10-17] MEDS: AMIODARONE 200 MG TAB PO SCH (10:19)
[2019-10-17] MEDS: ASPIRIN EC 81 MG TAB PO SCH (10:19)
[2019-10-17] MEDS: RIVAROXABAN 15 MG TAB PO SCH (10:19)
--- NOTE | 2019-10-17 11:39 | Progress Note ---
Assessment and Plan Paroxysmal atrial fibrillation/flutter on Xarelto for anticoagulation diltiazem was discontinued due to bradycardia arrhythmia; on amiodarone for suppression TSH 0.97 on labs 1 week ago Essential hypertension History of surgical ASD repair Multiple pauses on telemetry pt remains asymptomatic recent TSH level is normal at 0.97. 09/2019: Normal myocardial perfusion scan. Echo this admission shows a normal LVEF 550-55%. Recommendations: Continue amiodarone for suppression of paroxysmal atrial fibrillation. Stable cardiac dior for discharge. 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 Subjective Date of service: 10/17/19 Interval history: Patient is resting in bed comfortably and has no complaints. No events seen on school lunch monitor overnight. Objective Vital Signs Temp Pulse Pulse Pulse Resp BP BP 10/17/19 09:33 98.4 F 111 H 18 155/86 10/17/19 05:12 51 L 140/56 10/17/19 05:02 51 L 144/64 10/17/19 04:52 52 L 52 L 10/17/19 03:03 98.6 F 53 L 16 134/53 10/17/19 01:38 98.7 F 56 L 18 119/44 10/16/19 22:48 53 L 10/16/19 20:55 98.2 F 51 L 18 130/58 10/16/19 20:00 57 L 21 10/16/19 19:56 51 L 10/16/19 17:00 59 L 10/16/19 15:00 97.1 F L 53 L 18 107/47 10/16/19 12:29 57 L Pulse Ox 10/17/19 09:33 98 10/17/19 05:12 99 10/17/19 05:02 100 10/17/19 04:52 10/17/19 03:03 99 10/17/19 01:38 98 10/16/19 22:48 10/16/19 20:55 96 10/16/19 20:00 96 10/16/19 19:56 10/16/19 17:00 10/16/19 15:00 96 10/16/19 12:29 - Physical Examination General: No Apparent Distress HEENT: Positive: PERRL Neck: Positive: trachea midline Cardiac: Positive: Reg Rate and Rhythm Lungs: Positive: Decreased Breath Sounds Neuro: Positive: Grossly Intact Abdomen: Negative: Distended - Labs and Meds CBC 10/17/19 Range/Units 04:45 WBC 5.7 (4.5-11.0) K/mm3 RBC 2.96 L (3.65-5.03) M/mm3 Hgb 8.6 L (10.1-14.3) gm/dl Hct 26.0 L (30.3-42.9) % Plt Count 203 (140-440) K/mm3 Comprehensive Metabolic Panel 10/17/19 Range/Units 04:45 Sodium 142 D (137-145) mmol/L Potassium 4.5 (3.6-5.0) mmol/L Chloride 105.2 (98-107) mmol/L Carbon Dioxide 25 D (22-30) mmol/L BUN 17 (7-17) mg/dL Creatinine 0.6 L (0.7-1.2) mg/dL Glucose 102 H (65-100) mg/dL Calcium 9.5 D (8.4-10.2) mg/dL
--- NOTE | 2019-10-17 11:52 | Discharge Summary ---
Providers - Providers Date of Admission: 10/15/19 11:28 Attending physician: LUIS MONTERO MD 10/12/19 Consult to Cardiac Rehabilitation [CONS] Routine Reason For Exam: Phase I 10/13/19 10:06 Consult to Physician [CONS] Routine Comment: Consulting Provider: ANTONIA EDMONDS Physician Instructions: Reason For Exam: chest pain Primary care physician: [employer] Hospitalization Condition: Critical Hospital course: 64 YO Female with Paroxysmal Atrial Fib,as well as Symptomatic Bradycardia and is pending EP evaluation, Diastolic CHF, UTI, CAD. Patient rested comfortably overnight. Patient denies fever, chills, chest pain, palpitations, shortness of breath. No reported nursing events. History of surgical ASD repair Paroxysmal atrial fibrillation/flutter on Xarelto for anticoagulation diltiazem was discontinued due to bradycardia arrhythmia; on amiodarone for suppression TSH 0.97 on labs 1 week ago Essential hypertension History of surgical ASD repair Multiple pauses on telemetry pt remains asymptomatic recent TSH level is normal at 0.97. 09/2019: Normal myocardial perfusion scan. Echo this admission shows a normal LVEF 550-55%. Recommendations: Continue amiodarone for suppression of paroxysmal atrial fibrillation. Stable cardiac dior for discharge. Patient advised to f/u with her primary industrial nurse at [facility]. - Patient Problems (1) Paroxysmal atrial fibrillation Current Visit: Yes Status: Acute Plan to address problem: Continue rate control as per cardiology team, patient is pending electrophysiology evaluation. Medications adjusted by cardiology. TSH level is normal at 0.97 Continue anticoagulation (2) Angina at rest Current Visit: Yes Status: Acute Plan to address problem: Serial cardiac enzymes, EKG, telemetry, pain management, morphine, supplemental oxygen, nitro, aspirin, cardiology team consulted. (3) Diastolic CHF Current Visit: Yes Status: Acute Qualifiers: Heart failure chronicity: acute on chronic Qualified Code(s): I50.33 - Acute on chronic diastolic (congestive) heart failure Plan to address problem: Strict I's/O, daily weight, monitor urine output every shift, afterload reduction, blood pressure control, cardiology team consulted. (4) Hyperlipidemia Current Visit: Yes Status: Acute Qualifiers: Hyperlipidemia type: mixed hyperlipidemia Qualified Code(s): E78.2 - Mixed hyperlipidemia Plan to address problem: Low-cholesterol diet, statin therapy as clinically indicated. (5) Hypertension Current Visit: Yes Status: Acute Qualifiers: Hypertension type: essential hypertension Qualified Code(s): I10 - Essential (primary) hypertension Plan to address problem: Monitor blood pressure every shift, continue medical management (6) UTI (urinary tract infection) Current Visit: Yes Status: Acute Qualifiers: Urinary tract infection type: acute cystitis Hematuria presence: with hematuria Qualified Code(s): N30.01 - Acute cystitis with hematuria Plan to address problem: Urinalysis, CBC, IV antibiotic therapy. (7) Advance care planning Current Visit: Yes Status: Acute Plan to address problem: Disease education conducted, patient is full code, patient prognosis discussed, patient knowledges understanding and agreement with care plan, +30 minutes. (8) Symptomatic bradycardia Current Visit: Yes Status: Acute Plan to address problem: Electrophysiology evaluation as per cardiology service, continue telemetry monitoring, (9) DVT prophylaxis Current Visit: Yes Status: Acute Plan to address problem: SCD to bilateral lower extremities while in bed, patient is ambulatory Disposition: DC-01 TO HOME OR SELFCARE Exam - Constitutional Vitals: Temp Pulse Resp BP Pulse Ox 98.4 F 111 H 18 155/86 98 10/17/19 09:33 10/17/19 09:33 10/17/19 09:33 10/17/19 09:33 10/17/19 09:33 Plan Activity: advance as tolerated, fall precautions Diet: low salt Follow up with: NIKA ROA MD [Primary Care Provider] - 7 Days ANTONIA EDMONDS MD [Staff Physician] - 7 Days Prescriptions: Amiodarone [Cordarone 200 MG TAB] 200 mg PO QDAY #30 tablet
[2019-10-17 16:27] VITALS: BP 148/52
== END 2019-10-17 17:35 | disposition home or self-care (01) | DRG 308 ==
LOC: ED 16:45 → 4A 22:43 → OBSVTOIN 10-15 11:28
PROVIDERS: ADMIT Internal Medicine Geriatric Medicine; ATTEND Internal Medicine
DX: I48.0 Paroxysmal atrial fibrillation (principal); I50.33 Acute on chronic diastolic (congestive) heart failure; N30.01 Acute cystitis with hematuria; I11.0 Hypertensive heart disease with heart failure; I48.92 Unspecified atrial flutter; I25.119 Atherosclerotic heart disease of native coronary artery with unspecified angina pectoris; D64.9 Anemia, unspecified; E78.2 Mixed hyperlipidemia; Z86.73 Personal history of transient ischemic attack (TIA), and cerebral infarction without residual deficits; Z79.01 Long term (current) use of anticoagulants
CPT/HCPCS: 36415; 71046; 80048; 80053; 81001; 82550; 82553; 83880; 84132; 84484; 85025; 85027; 85610; 85730; 87086; 93005; 93306; G0378; A9270-GY; J0282; J0692; J0696; J1644; J2270

== ENCOUNTER 2019-10-20 14:03 | Observation (INO) | payer MEDICARE ==
--- NOTE | 2019-10-20 15:30 | Event Note ---
ED Screening Note Date of service: 10/20/19 Time: 15:30 ED Screening Note: Patient here with complaints of chest pain and shortness of breath starting this morning Patient was admitted 10/08 and 10/14 with similar complaints PMHx CAD, PE/DVT, HTN, HLD, CHF, Afib States compliance with Eliquis This initial assessment/diagnostic orders/clinical plan/treatment(s) is/are subject to change based on patients health status, clinical progression and re- assessment by fellow clinical providers in the ED. Further treatment and workup at subsequent clinical providers discretion. Patient/guardian urged not to elope from the ED as their condition may be serious if not clinically assessed and managed. Initial orders include: Labs Chest x-ray EKG
--- NOTE | 2019-10-20 16:19 | XRay Report ---
CHEST 2 VIEWS INDICATION / CLINICAL INFORMATION: Mid chest pain and shortness of breath. COMPARISON: 10/12/19. FINDINGS: SUPPORT DEVICES: None. HEART / MEDIASTINUM: Median sternotomy. Mild cardiomegaly is stable. Pulmonary vasculature is normal. The aorta is normal in caliber. LUNGS / PLEURA: No significant pulmonary or pleural abnormality. No pneumothorax. ADDITIONAL FINDINGS: No significant additional findings. IMPRESSION: No acute abnormality or significant change. Signer Name: Andrez Lara MD Signed: 10/20/2019 4:15 PM Workstation Name: [id number]
[2019-10-20 16:40] LABS: Basophils # (Auto) 0.1 K/mm3 (0.0-0.1); Basophils % (Auto) 0.6 % (0.0-1.8); Eosinophils % (Auto) 0.4 % (0.0-4.3); Hematocrit 31.1 % (30.3-42.9); Hemoglobin 10.7 gm/dl (10.1-14.3); Lymphocytes # (Auto) 0.8 K/mm3 (1.2-5.4); Lymphocytes % (Auto) 7.7 % (13.4-35.0); Mean Corpuscular HGB Conc 34 % (30-34); Mean Corpuscular Volume 86 fl (79-97); Monocytes # (Auto) 0.4 K/mm3 (0.0-0.8); Monocytes % (Auto) 4.1 % (0.0-7.3); Platelet Count 246 K/mm3 (140-440); Red Blood Count 3.61 M/mm3 (3.65-5.03); Red Cell Distribution Width 15.9 % (13.2-15.2)
[2019-10-20 17:01] LABS: Partial Thromboplastin Time 32.6 Sec. (24.2-36.6)
[2019-10-20 17:03] LABS: Alanine Aminotransferase 25 units/L (7-56); Albumin 4.3 g/dL (3.9-5); BUN/Creatinine Ratio 22; Blood Urea Nitrogen 13 mg/dL (7-17); Calcium 10.4 mg/dL (8.4-10.2); Hemolysis Index 7
[2019-10-20 17:04] LABS: INR 0.98 (0.87-1.13)
[2019-10-20 17:05] LABS: Bilirubin,Direct < 0.2 mg/dL (0-0.2)
[2019-10-20] MEDS ORDERED: ONDANSETRON 4 MG/2 ML INJ IV ONE (20:18)
[2019-10-20] MEDS ORDERED: fentaNYL 100 MCG/2 ML INJ IV ONE (20:18)
[2019-10-20] MEDS ORDERED: ASPIRIN 325 MG TAB PO ONE (20:18)
[2019-10-20] MEDS ORDERED: NITROGLYCERIN 2% OINT 1 GM TP ONE (20:18)
--- NOTE | 2019-10-20 20:23 | Emergency Department Report ---
HPI - General Chief Complaint: Dyspnea/Respdistress Time Seen by Provider: 10/20/19 20:12 - HPI HPI: Room 6 The patient is a 64-year-old female present with a chief complaint of chest pain shortness of breath. Patient states her symptom began this morning feel as though something heavy was sitting on her left chest. Patient states her pain was associated with shortness of breath but she denies nausea/vomiting or diaphoresis. Patient denies cough or fever. Patient currently gives her chest pain a score of 4/10. Patient states her last stress test occurred in August 2019 but her last cardiac catheterization occurred over 5 years ago ED Past Medical Hx - Past Medical History Previous Medical History?: Yes Hx Hypertension: Yes Hx CVA: Yes Hx Congestive Heart Failure: Yes - Surgical History Past Surgical History?: Yes Additional Surgical History: Open Heart, left knee, TL - Family History Family history: no significant - Social History Smoking Status: Never Smoker Substance Use Type: None - Medications Home Medications: Home Medications Medication Instructions Recorded Confirmed Last Taken Type Aspirin [Aspirin BABY CHEW TAB] 81 mg PO DAILY 10/09/19 10/13/19 10/08/19 History Atorvastatin Calcium [Lipitor] 40 mg PO HS 10/09/19 10/13/19 10/08/19 History Gabapentin 100 mg PO Q8HR 10/09/19 10/13/19 10/08/19 History Primidone [Mysoline] 50 mg PO BID 10/09/19 10/13/19 10/08/19 History Xarelto 15 mg PO DAILY 10/09/19 10/13/19 10/08/19 History Amiodarone [Cordarone 200 MG TAB] 200 mg PO QDAY #30 tablet 10/17/19 Unknown Rx ED Review of Systems ROS: Stated complaint: SOB Other details as noted in HPI Constitutional: denies: diaphoresis Eyes: denies: eye pain ENT: denies: throat pain Respiratory: shortness of breath Cardiovascular: chest pain Endocrine: no symptoms reported Gastrointestinal: denies: nausea, vomiting Genitourinary: denies: dysuria Musculoskeletal: denies: back pain Neurological: denies: headache Physical Exam - Physical Exam Vital Signs: Vital Signs 10/20/19 14:15 Temperature 98.2 F Pulse Rate 114 H Respiratory 16 Rate Blood Pressure 120/61 O2 Sat by Pulse 98 Oximetry Physical Exam: GENERAL: The patient is well-developed well-nourished female lying on stretcher not appearing to be in acute distress. [] HEENT: Normocephalic. Atraumatic. Extraocular motions are intact. Patient has moist mucous membranes. NECK: Supple. Trachea midline CHEST/LUNGS: Clear to auscultation. There is no respiratory distress noted. HEART/CARDIOVASCULAR: Irregularly irregular. There is no tachycardia. There is no gallop rub or murmur. ABDOMEN: Abdomen is soft, nontender. Patient has normal bowel sounds. There is no abdominal distention. SKIN: There is no rash. There is no edema. There is no diaphoresis. NEURO: The patient is awake, alert, and oriented. The patient is cooperative. The patient has normal speech MUSCULOSKELETAL: There is no evidence of acute injury. ED Course Vital Signs 10/20/19 14:15 Temperature 98.2 F Pulse Rate 114 H Respiratory 16 Rate Blood Pressure 120/61 O2 Sat by Pulse 98 Oximetry ED Medical Decision Making - Lab Data Result diagrams: 10/20/19 16:28 10/20/19 16:28 Laboratory Tests 10/20/19 10/20/19 10/20/19 16:28 16:28 16:28 WBC 10.4 RBC 3.61 L Hgb 10.7 Hct 31.1 MCV 86 MCH 30 MCHC 34 RDW 15.9 H Plt Count 246 Lymph % (Auto) 7.7 L [place] % (Auto) 4.1 Eos % (Auto) 0.4 Baso % (Auto) 0.6 Lymph # 0.8 L [place] # 0.4 Eos # 0.0 Baso # 0.1 Seg Neutrophils % 87.2 H Seg Neutrophils # 9.1 H PT 13.1 INR 0.98 APTT 32.6 Sodium 137 Potassium 4.5 Chloride 102.2 Carbon Dioxide 21 L Anion Gap 18 BUN 13 Creatinine 0.6 L Estimated GFR > 60 BUN/Creatinine Ratio 22 Glucose 124 H Calcium 10.4 H Total Bilirubin 0.30 Direct Bilirubin < 0.2 Indirect Bilirubin 0.1 AST 21 ALT 25 Alkaline Phosphatase 95 Troponin T < 0.010 Total Protein 8.2 Albumin 4.3 Albumin/Globulin Ratio 1.1 10/20/19 18:08 WBC RBC Hgb Hct MCV MCH MCHC RDW Plt Count Lymph % (Auto) [place] % (Auto) Eos % (Auto) Baso % (Auto) Lymph # [place] # Eos # Baso # Seg Neutrophils % Seg Neutrophils # PT INR APTT Sodium Potassium Chloride Carbon Dioxide Anion Gap BUN Creatinine Estimated GFR BUN/Creatinine Ratio Glucose Calcium Total Bilirubin Direct Bilirubin Indirect Bilirubin AST ALT Alkaline Phosphatase Troponin T < 0.010 Total Protein Albumin Albumin/Globulin Ratio - EKG Data -: EKG Interpreted by Me Rate: normal - EKG Data When compared to previous EKG there are: previous EKG unavailable Interpretation: other (Atrial fibrillation at 70 bpm. No ischemic changes seen) - Radiology Data Radiology results: report reviewed (Chest x-ray), image reviewed (Chest x-ray) interpreted by me: Chest x-ray-no focal infiltrates, no pneumothorax Findings [facility] [address] [id number] XRay Report Signed Patient: RASHAWN FRITZ MR#: [id number] : 1955 Acct:[id number] Age/Sex: 64 / F ADM Date: 10/20/19 Loc: ED Attending Dr: Ordering Physician: MYRIAM VOGT Date of Service: 10/20/19 Procedure(s): XR chest routine 2V Accession Number(s): [id number] cc: MYRIAM VOGT Fluoro Time In Minutes: CHEST 2 VIEWS INDICATION / CLINICAL INFORMATION: Mid chest pain and shortness of breath. COMPARISON: 10/12/19. FINDINGS: SUPPORT DEVICES: None. HEART / MEDIASTINUM: Median sternotomy. Mild cardiomegaly is stable. Pulmonary vasculature is normal. The aorta is normal in caliber. LUNGS / PLEURA: No significant pulmonary or pleural abnormality. No pneumothorax. ADDITIONAL FINDINGS: No significant additional findings. IMPRESSION: No acute abnormality or significant change. Signer Name: Andrez Lara MD Signed: 10/20/2019 4:15 PM Workstation Name: [id number] Transcribed By: RT Dictated By: Andrez Lara MD Electronically Authenticated By: Andrez Lara MD Signed Date/Time: 10/20/19 161 DD/ 161 TD/TT: - Differential Diagnosis ACS, pericarditis, GERD Critical care attestation.: If time is entered above; I have spent that time in minutes in the direct care of this critically ill patient, excluding procedure time. ED Disposition Clinical Impression: Chest pain Disposition: OP ADMIT IP TO THIS HOSP Is pt being admited?: Yes Does the pt Need Aspirin: Yes Condition: Fair Instructions: Chest Pain (ED) Referrals: PRIMARY CARE,MD [Primary Care Provider] - 3-5 Days Time of Disposition: 20:23 (Hospitalist paged (Dr Rico))
[2019-10-20] MEDS ORDERED: MAGNESIUM HYDROXIDE (MOM) ORAL LIQD UDC PO PRN (22:06)
[2019-10-20] MEDS ORDERED: ONDANSETRON 4 MG/2 ML INJ IV PRN (22:06)
[2019-10-20] MEDS ORDERED: NITROGLYCERIN 0.4 MG TAB SUBL SL PRN (22:06)
[2019-10-20] MEDS ORDERED: MORPHINE 2 MG/1 ML INJ IV PRN (22:06)
[2019-10-20] MEDS ORDERED: ACETAMINOPHEN 325 MG TAB PO PRN (22:06)
--- NOTE | 2019-10-20 22:19 | History and Physical Report ---
History of Present Illness Date of examination: 10/20/19 Date of admission: 10/20/2019 Chief complaint: Chest pain History of present illness: 64-year-old female with known history of CHF, stroke in the past, A. fib and also history of valve replacement presenting to the emergency room today complaining of chest pain. Chest pain felt like heavy pressure on the left side of her chest. She had associated shortness of breath, she denies any fever or chills, no nausea vomiting, no diaphoresis. Patient denies any cough, no headache or dizziness. There is no no relieving or exacerbating factor. On a scale of 10 chest pain was said to be about 4-5 over 10. Patient had a stress test sometime in August 2019 and also had a cardiac catheterization about 5 years ago will talk which she indicates was normal. Work-up in the emergency room today and so far been unremarkable. EKG shows atrial fibrillation with rates controlled. Past History Past Medical History: atrial fib, heart failure, hypertension, stroke Past Surgical History: Other (Left knee surgery in the past, tubal ligation, open heart surgery) Social history: no significant social history Family history: no significant family history Medications and Allergies Allergies Allergy/AdvReac Type Severity Reaction Status Date / Time No Known Allergies Allergy Unverified 10/09/19 10:34 Home Medications Medication Instructions Recorded Confirmed Last Taken Type Aspirin [Aspirin BABY CHEW TAB] 81 mg PO DAILY 10/09/19 10/13/19 10/08/19 History Atorvastatin Calcium [Lipitor] 40 mg PO HS 10/09/19 10/13/19 10/08/19 History Gabapentin 100 mg PO Q8HR 10/09/19 10/13/19 10/08/19 History Primidone [Mysoline] 50 mg PO BID 10/09/19 10/13/19 10/08/19 History Xarelto 15 mg PO DAILY 10/09/19 10/13/19 10/08/19 History Amiodarone [Cordarone 200 MG TAB] 200 mg PO QDAY #30 tablet 10/17/19 Unknown Rx Review of Systems Constitutional: no fever, no chills Ears, nose, mouth and throat: no nasal congestion, no sore throat Cardiovascular: chest pain, no palpitations, no paroxysmal nocturnal dyspnea Respiratory: no cough, no shortness of breath Gastrointestinal: no abdominal pain, no nausea, no vomiting, no diarrhea, no heartburn Genitourinary Female: no flank pain, no dysuria, no hematuria Musculoskeletal: no neck pain, no low back pain Integumentary: no rash, no pruritis Neurological: no headaches, no confusion Psychiatric: no anxiety, no depression Exam - Constitutional Vitals: Temp Pulse Resp BP Pulse Ox 98.2 F 70 16 125/82 98 10/20/19 14:15 10/20/19 20:48 10/20/19 14:15 10/20/19 20:48 10/20/19 14:15 General appearance: Present: no acute distress, well-nourished - EENT Eyes: Present: PERRL, EOM intact. Absent: scleral icterus ENT: hearing intact, clear oral mucosa, dentition normal - Neck Neck: Present: supple, normal ROM - Respiratory Respiratory effort: normal Respiratory: bilateral: CTA - Cardiovascular Rhythm: irregularly irregular Heart Sounds: Present: S1 & S2, systolic murmur. Absent: gallop, diastolic murmur, rub - Extremities Extremities: no ischemia, pulses intact, pulses symmetrical, No edema, Full ROM Peripheral Pulses: within normal limits - Abdominal General gastrointestinal: Present: soft, non-tender, non-distended, normal bowel sounds. Absent: mass - Integumentary Integumentary: Present: clear, warm, dry. Absent: rash - Musculoskeletal Musculoskeletal: strength equal bilaterally - Psychiatric Psychiatric: appropriate mood/affect, intact judgment & insight, memory intact, cooperative - Neurologic Neurologic: CNII-XII intact, no focal deficits, moves all extremities HEART Score - HEART Score Troponin: Troponin T < 0.010 ng/mL (0.00-0.029) 10/20/19 18:08 Results - Labs CBC & Chem 7: 10/21/19 04:14 10/21/19 04:14 Labs: Abnormal lab results 10/20/19 10/20/19 Range/Units 16:28 16:28 RBC 3.61 L (3.65-5.03) M/mm3 RDW 15.9 H (13.2-15.2) % Lymph % (Auto) 7.7 L (13.4-35.0) % Lymph # 0.8 L (1.2-5.4) K/mm3 Seg Neutrophils % 87.2 H (40.0-70.0) % Seg Neutrophils # 9.1 H (1.8-7.7) K/mm3 Carbon Dioxide 21 L (22-30) mmol/L Creatinine 0.6 L (0.7-1.2) mg/dL Glucose 124 H (65-100) mg/dL Calcium 10.4 H (8.4-10.2) mg/dL Assessment and Plan - Patient Problems (1) Chest pain Current Visit: Yes Status: Acute Plan to address problem: Patient admitted and placed on telemetry. Will check serial cardiac enzymes. Will request cardiology evaluation and recommendation. Patient placed on daily aspirin, sublingual nitroglycerin and IV morphine as needed for chest pain. (2) Hypertension Current Visit: No Status: Acute Qualifiers: Hypertension type: essential hypertension Qualified Code(s): I10 - Essential (primary) hypertension Plan to address problem: We will continue routine antihypertensive medications and monitor vital signs closely. (3) Paroxysmal atrial fibrillation Current Visit: No Status: Acute Plan to address problem: Rate is currently controlled. Patient also on anticoagulation. We will monitor EKG. (4) DVT prophylaxis Current Visit: No Status: Acute Plan to address problem: Patient currently on anticoagulation. (5) Full code status Current Visit: No Status: Acute
[2019-10-21 01:49] LABS: Basophils % (Auto) 0.6 % (0.0-1.8); Eosinophils # (Auto) 0.1 K/mm3 (0.0-0.4); Eosinophils % (Auto) 1.6 % (0.0-4.3); Hematocrit 30.3 % (30.3-42.9); Hemoglobin 10.1 gm/dl (10.1-14.3); Lymphocytes % (Auto) 14.9 % (13.4-35.0); Mean Corpuscular HGB Conc 33 % (30-34); Mean Corpuscular Volume 87 fl (79-97); Monocytes # (Auto) 0.5 K/mm3 (0.0-0.8); Platelet Count 247 K/mm3 (140-440); Red Blood Count 3.48 M/mm3 (3.65-5.03); Red Cell Distribution Width 16.1 % (13.2-15.2)
[2019-10-21 02:08] LABS: BUN/Creatinine Ratio 17; Blood Urea Nitrogen 12 mg/dL (7-17); Chol/HDL Ratio 1.87 %; HDL Cholesterol 66 mg/dL (40-59); Hemolysis Index 1; LDL Cholesterol,Direct 60 mg/dL (50-130)
[2019-10-21 05:20] LABS: Basophils % (Auto) 0.8 % (0.0-1.8); Eosinophils # (Auto) 0.1 K/mm3 (0.0-0.4); Eosinophils % (Auto) 2.1 % (0.0-4.3); Hematocrit 29.7 % (30.3-42.9); Hemoglobin 9.8 gm/dl (10.1-14.3); Lymphocytes # (Auto) 0.8 K/mm3 (1.2-5.4); Lymphocytes % (Auto) 13.6 % (13.4-35.0); Mean Corpuscular HGB Conc 33 % (30-34); Mean Corpuscular Volume 88 fl (79-97); Monocytes # (Auto) 0.5 K/mm3 (0.0-0.8); Monocytes % (Auto) 7.7 % (0.0-7.3); Platelet Count 242 K/mm3 (140-440); Red Blood Count 3.38 M/mm3 (3.65-5.03); Red Cell Distribution Width 16.1 % (13.2-15.2)
[2019-10-21 05:23] LABS: BUN/Creatinine Ratio 19; Blood Urea Nitrogen 13 mg/dL (7-17); Calcium 10.3 mg/dL (8.4-10.2); Hemolysis Index 1
[2019-10-21 06:29] LABS: INR > 17.67 (0.87-1.13)
[2019-10-21] MEDS ORDERED: GABAPENTIN 100 MG CAP ONE ×2 (07:04→15:00)
[2019-10-21] MEDS: GABAPENTIN 100 MG CAP PO SCH ×2 (07:07→15:00)
[2019-10-21 08:03] VITALS: BP 152/84
[2019-10-21] MEDS ORDERED: AMIODARONE 200 MG TAB PO SCH (10:00)
[2019-10-21] MEDS ORDERED: ASPIRIN EC 325 MG TAB PO SCH (10:00)
[2019-10-21] MEDS ORDERED: XARELTO 15 MG PO SCH (10:00)
[2019-10-21] MEDS ORDERED: PRIMIDONE 50 MG TAB PO SCH (10:00)
[2019-10-21] MEDS ORDERED: ASPIRIN EC 325 MG TAB PO ONE (10:13)
--- NOTE | 2019-10-21 11:35 | Consultation ---
History of Present Illness Consult date: 10/21/19 Consult reason: chest pain History of present illness: 64 year old female presenting with left sided chest pain radiating down her left leg, relieved with gabapentin. No specific aggravating factors. Pain is poorly characterized. Patient had stress echo performed 09/03/2019[facility] showing no ischemia. Pain was deemed at that time to be neuropathic hence patient was started on gabapentin therapy. Past History Past Medical History: atrial fib, heart failure, hypertension, stroke Past Surgical History: Other (Left knee surgery in the past, tubal ligation, open heart surgery) Social history: no significant social history Family history: no significant family history Medications and Allergies Allergies Allergy/AdvReac Type Severity Reaction Status Date / Time No Known Allergies Allergy Unverified 10/09/19 10:34 Home Medications Medication Instructions Recorded Confirmed Last Taken Type Aspirin [Aspirin BABY CHEW TAB] 81 mg PO DAILY 10/09/19 10/13/19 10/08/19 History Atorvastatin Calcium [Lipitor] 40 mg PO HS 10/09/19 10/13/19 10/08/19 History Gabapentin 100 mg PO Q8HR 10/09/19 10/13/19 10/08/19 History Primidone [Mysoline] 50 mg PO BID 10/09/19 10/13/19 10/08/19 History Xarelto 15 mg PO DAILY 10/09/19 10/13/19 10/08/19 History Amiodarone [Cordarone 200 MG TAB] 200 mg PO QDAY #30 tablet 10/17/19 Unknown Rx Active Meds: Active Medications Acetaminophen (Tylenol) 650 mg PO Q4H PRN PRN Reason: Pain MILD(1-3)/Fever >100.5/CREWS Amiodarone HCl (Cordarone) 200 mg PO QDAY [facility] Last Admin: 10/21/19 11:00 Dose: 200 mg Documented by: Aspirin (Ecotrin) 325 mg PO QDAY [facility] Last Admin: 10/21/19 10:59 Dose: 325 mg Documented by: Atorvastatin Calcium (Lipitor) 40 mg PO QHS [facility] Gabapentin (Gabapentin) 100 mg PO Q8HR [facility] Last Admin: 10/21/19 07:07 Dose: 100 mg Documented by: Magnesium Hydroxide (Milk Of Magnesia) 30 ml PO Q4H PRN PRN Reason: Constipation Morphine Sulfate (Morphine) 2 mg IV Q5MIN PRN PRN Reason: Chest Pain unrelieved by NTG Nitroglycerin (Nitrostat) 0.4 mg SL Q5M PRN PRN Reason: Chest Pain Ondansetron HCl (Zofran) 4 mg IV Q8H PRN PRN Reason: Nausea And Vomiting Primidone (Mysoline) 50 mg PO BID [facility] Last Admin: 10/21/19 11:00 Dose: 50 mg Documented by: Rivaroxaban (Xarelto) 15 mg PO QDAY@1700 [facility] Sodium Chloride (Sodium Chloride Flush Syringe 10 Ml) 10 ml IV BID [facility] Last Admin: 10/21/19 11:00 Dose: 10 ml Documented by: Sodium Chloride (Sodium Chloride Flush Syringe 10 Ml) 10 ml IV PRN PRN PRN Reason: LINE FLUSH Review of Systems All systems: negative Physical Examination Vital Signs Temp Pulse Resp BP Pulse Ox 98.2 F 114 H 16 120/61 98 10/20/19 14:15 10/20/19 14:15 10/20/19 14:15 10/20/19 14:15 10/20/19 14:15 General appearance: no acute distress Neck: Positive: neck supple Cardiac: Positive: Reg Rate and Rhythm Lungs: Positive: Normal Exam Neuro: Positive: Grossly Intact Results 10/21/19 04:14 10/21/19 04:14 Cardiac Enzymes 10/20/19 Range/Units 16:28 AST 21 (5-40) units/L Coagulation 10/20/19 10/21/19 Range/Units 16:28 04:14 PT 13.1 > 120.0 H (12.2-14.9) Sec. INR 0.98 > 17.67 H* (0.87-1.13) APTT 32.6 (24.2-36.6) Sec. Lipids 10/21/19 Range/Units 00:43 Triglycerides 36 (2-149) mg/dL Cholesterol 124 (50-199) mg/dL HDL Cholesterol 66 H (40-59) mg/dL Cholesterol/HDL Ratio 1.87 % CBC 10/20/19 10/21/19 10/21/19 Range/Units 16:28 00:43 04:14 WBC 10.4 6.6 5.9 (4.5-11.0) K/mm3 RBC 3.61 L 3.48 L 3.38 L (3.65-5.03) M/mm3 Hgb 10.7 10.1 9.8 L (10.1-14.3) gm/dl Hct 31.1 30.3 29.7 L (30.3-42.9) % Plt Count 246 247 242 (140-440) K/mm3 Lymph # 0.8 L 1.0 L 0.8 L (1.2-5.4) K/mm3 [place] # 0.4 0.5 0.5 (0.0-0.8) K/mm3 Eos # 0.0 0.1 0.1 (0.0-0.4) K/mm3 Baso # 0.1 0.0 0.0 (0.0-0.1) K/mm3 Comprehensive Metabolic Panel 10/20/19 10/21/19 10/21/19 Range/Units 16:28 00:43 04:14 Sodium 137 140 140 (137-145) mmol/L Potassium 4.5 4.4 4.7 (3.6-5.0) mmol/L Chloride 102.2 103.5 102.5 (98-107) mmol/L Carbon Dioxide 21 L 26 25 (22-30) mmol/L BUN 13 12 13 (7-17) mg/dL Creatinine 0.6 L 0.7 0.7 (0.7-1.2) mg/dL Glucose 124 H 104 H 102 H (65-100) mg/dL Calcium 10.4 H 10.0 10.3 H (8.4-10.2) mg/dL Direct Bilirubin < 0.2 (0-0.2) mg/dL Indirect Bilirubin 0.1 mg/dL AST 21 (5-40) units/L ALT 25 (7-56) units/L Alkaline Phosphatase 95 (35-129) units/L Total Protein 8.2 (6.3-8.2) g/dL Albumin 4.3 (3.9-5) g/dL - EKG Interpretation EKG shows: atrial fibrillation EKG interpretations - Telemetry EKG Rhythm: Atrial Fibrillation Assessment and Plan Atypical chest pain OBIE 09/03/2019at [facility] showing no ischemia, normal wall motion and normal LVEF Troponin negative ECG showing afib with no ischemic changes History of open heart surgery 1963 for ? valvular heart disease vs 'hole in my heart' Echo 08/2019 at [facility] showing no significant valvular heart disease Permanent atrial fibrillation on xarelto for anticoagulation as outpatient History of PE/DVT History of CVA Essential hypertension Hyperlipidemia Recommendations: No further cardiac work-up is needed for atypical chest pain Continue gabapentin
[2019-10-21 12:29] LABS: INR 1.03 (0.87-1.13)
--- NOTE | 2019-10-21 12:36 | Discharge Summary ---
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
[2019-10-21] MEDS ORDERED: ACETAMINOPHEN 325 MG TAB ONE (14:59)
[2019-10-21] MEDS ORDERED: RIVAROXABAN 15 MG TAB PO SCH (17:00)
[2019-10-21] MEDS ORDERED: ATORVASTATIN CALCIUM 40 MG PO SCH (22:00)
== END 2019-10-21 15:00 | disposition home or self-care (01) ==
LOC: ED 14:03 → 4A 21:57
PROVIDERS: ADMIT Internal Medicine Geriatric Medicine; ATTEND Internal Medicine
DX: M94.0 Chondrocostal junction syndrome [Tietze] (principal); G62.9 Polyneuropathy, unspecified; I11.0 Hypertensive heart disease with heart failure; I50.9 Heart failure, unspecified; I48.0 Paroxysmal atrial fibrillation; E78.5 Hyperlipidemia, unspecified; Z86.73 Personal history of transient ischemic attack (TIA), and cerebral infarction without residual deficits; Z86.718 Personal history of other venous thrombosis and embolism; Z86.711 Personal history of pulmonary embolism; Z98.51 Tubal ligation status; Z95.4 Presence of other heart-valve replacement; Z79.82 Long term (current) use of aspirin; Z79.01 Long term (current) use of anticoagulants; Z79.899 Other long term (current) drug therapy
CPT/HCPCS: 36415; 71046; 80048; 80061; 80076; 84484; 85025; 85610; 85730; 93005; 93306; 96374; 96375; 99285; G0378; J2405; J3010

== ENCOUNTER 2019-11-03 04:08 | Emergency (ER) | payer MEDICARE ==
--- NOTE | 2019-11-03 05:22 | XRay Report ---
CHEST 1 VIEW 0455 INDICATION / CLINICAL INFORMATION: SOB COMPARISON: 10/31/2019 FINDINGS: SUPPORT DEVICES: None HEART / MEDIASTINUM: Stable. LUNGS / PLEURA: No significant pulmonary or pleural abnormality. No pneumothorax. ADDITIONAL FINDINGS: No significant additional findings. IMPRESSION: No significant acute abnormality Signer Name: Bhaskar Rowan MD Signed: 11/03/2019 5:18 AM Workstation Name: [id number]
[2019-11-03 05:28] LABS: Basophils # (Auto) 0.1 K/mm3 (0.0-0.1); Eosinophils # (Auto) 0.1 K/mm3 (0.0-0.4); Eosinophils % (Auto) 0.8 % (0.0-4.3); Hematocrit 29.8 % (30.3-42.9); Lymphocytes # (Auto) 0.8 K/mm3 (1.2-5.4); Lymphocytes % (Auto) 12.9 % (13.4-35.0); Mean Corpuscular HGB Conc 34 % (30-34); Mean Corpuscular Volume 87 fl (79-97); Monocytes # (Auto) 0.4 K/mm3 (0.0-0.8); Monocytes % (Auto) 6.6 % (0.0-7.3); Platelet Count 327 K/mm3 (140-440); Red Blood Count 3.41 M/mm3 (3.65-5.03); Red Cell Distribution Width 16.9 % (13.2-15.2)
[2019-11-03 05:42] LABS: Alanine Aminotransferase 13 units/L (7-56); Albumin 4.1 g/dL (3.9-5); Blood Urea Nitrogen 18 mg/dL (7-17); Calcium 9.8 mg/dL (8.4-10.2); Hemolysis Index 3
[2019-11-03 05:49] LABS: BUN/Creatinine Ratio 26
--- NOTE | 2019-11-03 07:36 | Emergency Department Report ---
ED Shortness of Breath HPI - General Chief Complaint: Dyspnea/Respdistress Stated Complaint: SOB Time Seen by Provider: 11/03/19 06:07 Source: patient, EMS Mode of arrival: Stretcher Limitations: No Limitations - History of Present Illness Initial Comments: 64-year-old female, history of CHF, CVA, paroxysmal A. fib on Xarelto, presents to ED with complaint of shortness of breath that began this morning. Patient was discharged from this facility on yesterday. Patient had 4 admissions during the month of October 2019 for shortness of breath and chest pain. Patient had a negative stress test September 2019. Currently, patient states she is feeling much b dulce. She denies any fever, palpitations, chest pain. MD Complaint: shortness of breath -: This morning Severity: moderate Consistency: now resolved Improves With: nothing Worsens With: nothing Treatments Prior to Arrival: bronchodilator - Related Data Home Medications Medication Instructions Recorded Confirmed Last Taken Aspirin [Aspirin BABY CHEW TAB] 81 mg PO DAILY 10/09/19 10/31/19 10/08/19 Atorvastatin Calcium [Lipitor] 40 mg PO HS 10/09/19 10/31/19 10/08/19 Gabapentin 100 mg PO Q8HR 10/09/19 10/31/19 10/08/19 Primidone [Mysoline] 50 mg PO BID 10/09/19 10/31/19 10/08/19 Xarelto 15 mg PO DAILY 10/09/19 10/31/19 10/08/19 Previous Rx's Medication Instructions Recorded Last Taken Type Amiodarone [Cordarone 200 MG TAB] 200 mg PO BID #60 tablet 11/02/19 Unknown Rx Allergies Allergy/AdvReac Type Severity Reaction Status Date / Time No Known Allergies Allergy Verified 10/31/19 02:02 ED Review of Systems ROS: Stated complaint: SOB Other details as noted in HPI Comment: All other systems reviewed and negative Constitutional: denies: chills, fever Respiratory: shortness of breath Cardiovascular: denies: chest pain, palpitations Gastrointestinal: denies: vomiting, diarrhea ED Past Medical Hx - Past Medical History Hx Hypertension: Yes Hx CVA: Yes (x2 right weaker side) Hx Congestive Heart Failure: Yes Hx Deep Vein Thrombosis: Yes Hx Pulmonary Embolism: Yes - Surgical History Additional Surgical History: Open Heart, left knee, TL - Social History Smoking Status: Never Smoker Substance Use Type: Alcohol - Medications Home Medications: Home Medications Medication Instructions Recorded Confirmed Last Taken Type Aspirin [Aspirin BABY CHEW TAB] 81 mg PO DAILY 10/09/19 10/31/19 10/08/19 History Atorvastatin Calcium [Lipitor] 40 mg PO HS 10/09/19 10/31/19 10/08/19 History Gabapentin 100 mg PO Q8HR 10/09/19 10/31/19 10/08/19 History Primidone [Mysoline] 50 mg PO BID 10/09/19 10/31/19 10/08/19 History Xarelto 15 mg PO DAILY 10/09/19 10/31/19 10/08/19 History Amiodarone [Cordarone 200 MG TAB] 200 mg PO BID #60 tablet 11/02/19 Unknown Rx ED Physical Exam - General Limitations: No Limitations General appearance: alert, in no apparent distress - Head Head exam: Present: atraumatic, normocephalic - Eye Eye exam: Present: normal appearance, EOMI - ENT ENT exam: Present: mucous membranes moist - Neck Neck exam: Present: normal inspection - Respiratory Respiratory exam: Present: normal lung sounds bilaterally. Absent: respiratory distress - Cardiovascular Cardiovascular Exam: Present: normal rhythm, tachycardia - GI/Abdominal GI/Abdominal exam: Present: soft. Absent: distended, tenderness - Extremities Exam Extremities exam: Present: normal inspection - Neurological Exam Neurological exam: Present: alert, oriented X3 - Psychiatric Psychiatric exam: Present: normal affect, normal mood - Skin Skin exam: Present: warm, dry, intact, normal color ED Course Vital Signs 11/03/19 11/03/19 11/03/19 04:37 04:41 04:48 Temperature 98.3 F Pulse Rate 72 74 Respiratory 12 18 Rate Blood Pressure Blood Pressure [Left] O2 Sat by Pulse 97 98 Oximetry 11/03/19 11/03/19 11/03/19 05:00 05:30 06:00 Temperature Pulse Rate 69 64 105 H Respiratory 10 L 12 15 Rate Blood Pressure 129/62 128/63 Blood Pressure [Left] O2 Sat by Pulse 95 96 97 Oximetry 11/03/19 11/03/19 11/03/19 06:30 07:00 07:30 Temperature Pulse Rate 106 H 111 H 118 H Respiratory 16 15 10 L Rate Blood Pressure 100/67 114/76 130/85 Blood Pressure [Left] O2 Sat by Pulse 95 97 Oximetry 11/03/19 11/03/19 08:17 08:36 Temperature Pulse Rate 124 H 113 H Respiratory 18 Rate Blood Pressure 136/95 Blood Pressure 136/95 [Left] O2 Sat by Pulse 98 Oximetry ED Medical Decision Making - Lab Data Result diagrams: 11/03/19 05:02 11/03/19 05:02 - EKG Data -: EKG Interpreted by Me EKG shows normal: sinus rhythm, axis, QRS complexes, ST-T waves Rate: normal - EKG Data Interpretation: other (prolonged TN and QT) - Radiology Data Radiology results: report reviewed, image reviewed - Medical Decision Making 64-year-old female presents to ED with complaint of shortness of breath, which she states has resolved at this time. Labs are unremarkable. EKG is normal. Troponin is negative. Chest x-ray is unremarkable. Patient is in no respiratory distress, O2 sats are normal. Patient has history of A. fib. Heart rate is now slightly tachycardic, in the 110s, however patient reports that she does take her amiodarone in the mornings. Will give a dose of her p.o. amiodarone now. Patient was discharged on yesterday, scheduled to follow-up with cardiology. I do not see any need for readmission at this time. Patient feels comfortable with discharge home. Return precautions given. - Differential Diagnosis Pulmonary edema, pneumonia, ACS Critical care attestation.: If time is entered above; I have spent that time in minutes in the direct care of this critically ill patient, excluding procedure time. ED Disposition Clinical Impression: SOB (shortness of breath) Disposition: -01 TO HOME OR SELFCARE Is pt being admited?: No Condition: Stable Instructions: Dyspnea (ED) Referrals: PRIMARY CARE, [Primary Care Provider] - 3-5 Days Time of Disposition: 07:52
[2019-11-03] MEDS ORDERED: AMIODARONE 200 MG TAB PO ONE (07:55)
[2019-11-03 08:29] VITALS: BP 136/95
== END 2019-11-03 08:34 | disposition home or self-care (01) ==
LOC: ED 04:08
DX: R06.02 Shortness of breath (principal); I11.0 Hypertensive heart disease with heart failure; I50.9 Heart failure, unspecified; Z86.711 Personal history of pulmonary embolism; Z79.01 Long term (current) use of anticoagulants; Z86.718 Personal history of other venous thrombosis and embolism; Z79.899 Other long term (current) drug therapy
CPT/HCPCS: 36415; 71045; 80053; 84484; 85025; 93005